=== PATIENT | female | born 1980 | race Caucasian/White ===

== ENCOUNTER → 2017-07-06 10:41 | Outpatient (REF) | payer BC, SELFPAY ==
[2017-07-06 14:30] LABS: Basophils # 0.1 K/mm3 (0-0.2); Basophils % 0.8 % (0.1-2.0); Eosinophils # 0.5 K/mm3 (0.0-0.4); Eosinophils % 4.3 % (0.1-12.0); Hematocrit 42.4 % (37.0-47.0); Hemoglobin 14.2 g/dL (12.2-16.2); Lymphocytes # 3.8 K/mm3 (0.7-4.5); Lymphocytes % 33.8 K/mm3 (10-50); Mean Corpuscular HGB Conc 33.5 g/dL (31.8-35.4); Mean Corpuscular Hemoglobin 29.3 pg (27.0-31.2); Mean Corpuscular Volume 87.6 fl (81-99); Monocytes # 0.7 K/mm3 (0.1-1.0); Monocytes % 5.9 % (1.7-9.3); Neutrophils # 6.2 K/mm3 (1.8-7.8); Neutrophils % 55.2 % (37.0-80.0); Platelet Count 250 K/mm3 (142-424); Red Blood Count 4.84 M/mm3 (4.20-5.40); Red Cell Distribution Width 12.2 % (11.5-17.5); White Blood Count 11.2 K/mm3 (4.8-10.8)
[2017-07-06 15:00] LABS: Hemoglobin A1C 6.7 % (0.0-7.0)
[2017-07-06 16:01] LABS: Alanine Aminotransferase 31 U/L (12-78); Albumin Level 4.1 gm/dL (3.4-5.0); Albumin/Globulin Ratio 1.1 (1.1-1.8); Alkaline Phosphatase 80 U/L (46-116); Anion Gap 16.5 mEq/L (5-15); Bilirubin,Total 0.5 mg/dL (0.2-1.0); Blood Urea Nitrogen 18 mg/dL (7-18); Calcium 9.4 mg/dL (8.5-10.1); Carbon Dioxide 23 mmol/L (21.0-32.0); Chloride 103 mmol/L (98-107); Chol/HDL Ratio 5.3 (1-3.5); Cholesterol 187 mg/dL (140-200); Creatinine,Serum 0.65 mg/dL (0.55-1.02); Estimated Glomerular Filt Rate 104 ml/min (>60); Free T4 (Free Thyroxine) 0.89 ng/dl (0.76-1.46); GFR (African American) 126 ML/MIN (>60); Globulin 3.8 gm/dl (1.3-3.2); Glucose 139 mg/dL (74-106); HDL Cholesterol 35 mg/dL (29-89); LDL Cholesterol 115 mg/dL (0-130); Sodium 138 mmol/L (136-145); Thyroid Stimulating Hormone 4.59 uIU/ml (0.358-3.740); Total Protein,Serum 7.9 gm/dL (6.4-8.2); Triglycerides 184 mg/dL (30-200); VLDL Cholesterol 37 mg/dL (0-40)
[2017-07-06 16:06] LABS: Aspartate Amino Transferase 25 U/L (15-37); C-Reactive Protein < 0.2 mg/L (0.0-0.9); Potassium 4.5 mmoL/L (3.5-5.1)
[2017-07-06 16:07] LABS: Erythrocyte Sedimentation Rate 14 mm/hr (0-20)
[2017-07-07 06:19] LABS: Vitamin D 25 Hydroxy 32.5 ng/mL (30.0-100.0)
[2017-07-07 10:18] LABS: Anti-Jo-1 <0.2 AI (0.0-0.9); Anti-Smith Antibody <0.2 AI (0.0-0.9); Antichromatin Antibodies <0.2 AI (0.0-0.9); Antiscleroderma-70 Antibodies <0.2 AI (0.0-0.9); RNP Antibodies <0.2 AI (0.0-0.9); Sjogren's Anti-SS-A <0.2 AI (0.0-0.9); Sjogren's Anti-SS-B <0.2 AI (0.0-0.9)
[2017-07-08 14:47] LABS: Anti-Centromere B Antibodies <0.2 AI (0.0-0.9); Anti-DNA (DS) Ab Qn 4 IU/mL (0-9); RA Latex Turbid. 10.4 IU/mL (0.0-13.9)
== END ==
LOC: LAB 10:41
PROVIDERS: Visit Provider Nurse Practitioner Family
DX: R00.2 Palpitations (principal); R06.02 Shortness of breath; R53.83 Other fatigue; Z82.49 Family history of ischemic heart disease and other diseases of the circulatory system
CPT/HCPCS: 80053; 80061; 82652; 83036; 84439; 84443; 85025; 85651; 86038; 86140; 86431

== ENCOUNTER → 2017-07-09 13:38 | Outpatient (CLI) | payer BC, SELFPAY ==
--- NOTE | 2017-07-09 07:51 | CA_ITS ---
PROCEDURE: 2-D M-mode and color Doppler study INDICATIONS FOR THE TEST: Chest pain COPD Heart Murmur Tobacco Smoking PalpitationsX Fatigue Syncope EdemaX HypertensionXDiabetes Mellitus Rheumatic Fever SOB DOEXObesity Hyperlipidemia Family History HDX Additional History PAST H/O DRUG ABUSE PATIENT INFORMATION HEIGHT: 67 WEIGHT:236 GENDER: Female B/P:145/97 2-D/M-MODE INTERPRETATION: 2-D MEASUREMENTS OBSERVED VALUES IN CMS Right Ventricular Dimension (RVDd) 2.2 Interventricular Septum (Thickness)(IVsd) 1.3 Left Ventricular Internal Dimensions(LVIDd) 4.9 Left Ventricular Posterior Wall (Thickness)(LVPWd) .9 Aortic Root 2.5 Aortic Cusp Separation 2.2 Left Atrial Dimensions (LAD) 3.3 2D 1. Left atrium is normal size, left ventricle is normal size, there is no concentric left ventricular hypertrophy, visually estimated ejection fraction 55% with no obvious regional wall motion abnormality. 2. The right atrium and right ventricle are normal size and contractility. 3. The aortic, mitral and tricuspid valves are grossly normal. 4. The pulmonic valve is poorly visualized 6. No significant pericardial effusion noted. DOPPLER INTERROGATION: Doppler interrogation of the aortic, mitral and tricuspid valvular presence of mild mitral and tricuspid regurgitation, tricuspid and jet velocity insufficient for calculation of the right ventricular systolic pressure, diastolic parameters are within normal range. CONCLUSION: 1. Normal left ventricular size, preserved left ventricular systolic function, visually estimated ejection fraction 55% no signal wall motion abnormality, diastolic parameters are within normal range. 2. Mild mitral and tricuspid regurgitation 3. No significant pericardial effusion noted.
== END ==
PROVIDERS: PCP Nurse Practitioner Family; Visit Provider Internal Medicine
DX: R00.2 Palpitations (principal); R06.02 Shortness of breath
CPT/HCPCS: 93306; 93325

== ENCOUNTER → 2017-07-22 10:39 | Outpatient (CLI) | payer BC, SELFPAY ==
[2017-07-22 12:10] LABS: Anion Gap 11.8 mEq/L (5-15); Blood Urea Nitrogen 15 mg/dL (7-18); Carbon Dioxide 29 mmol/L (21.0-32.0); Chloride 101 mmol/L (98-107); Creatinine,Serum 0.79 mg/dL (0.55-1.02); Estimated Glomerular Filt Rate 83 ml/min (>60); GFR (African American) 101 ML/MIN (>60); Glucose 213 mg/dL (74-106); Potassium 3.8 mmoL/L (3.5-5.1); Sodium 138 mmol/L (136-145)
== END ==
PROVIDERS: PCP Nurse Practitioner Family; Visit Provider Physician Assistant
DX: R00.2 Palpitations (principal); I10 Essential (primary) hypertension; Z82.49 Family history of ischemic heart disease and other diseases of the circulatory system
CPT/HCPCS: 36415; 80048

== ENCOUNTER → 2018-01-14 13:52 | Outpatient (CLI) | payer BC, SELFPAY | PROVIDERS: PCP Nurse Practitioner Family; Visit Provider Internal Medicine Cardiovascular Disease | DX: G47.33 Obstructive sleep apnea (adult) (pediatric) (principal); R06.83 Snoring; R40.0 Somnolence; R63.5 Abnormal weight gain; I10 Essential (primary) hypertension; Z82.49 Family history of ischemic heart disease and other diseases of the circulatory system | CPT/HCPCS: 95806 ==

== ENCOUNTER → 2018-08-22 20:07 | Outpatient (CLI) | payer BC, SELFPAY ==
[2018-08-22 21:09] LABS: Thyroid Stimulating Hormone 2.54 uIU/ml (0.358-3.740)
== END ==
PROVIDERS: Visit Provider Nurse Practitioner Family
DX: E03.9 Hypothyroidism, unspecified (principal)
CPT/HCPCS: 84443

== ENCOUNTER → 2019-11-16 14:51 | Outpatient (CLI) | payer BC, SELFPAY ==
[2019-11-16 17:53] LABS: Basophils # 0.1 K/mm3 (0-0.2); Basophils % 1.3 % (0.1-2.0); Eosinophils # 0.2 K/mm3 (0.0-0.4); Eosinophils % 2.7 % (0.1-12.0); Hematocrit 44.8 % (37.0-47.0); Hemoglobin 15.4 g/dL (12.2-16.2); Lymphocytes # 2.9 K/mm3 (0.7-4.5); Lymphocytes % 36.3 % (10-50); Mean Corpuscular HGB Conc 34.3 g/dL (31.8-35.4); Mean Corpuscular Hemoglobin 30.4 pg (27.0-31.2); Mean Corpuscular Volume 88.5 fl (81-99); Mean Platelet Volume 9.3 fl (7.4-10.4); Monocytes # 0.5 K/mm3 (0.1-1.0); Monocytes % 5.6 % (1.7-9.3); Neutrophils # 4.4 K/mm3 (1.8-7.8); Neutrophils % 54.1 % (37.0-80.0); Platelet Count 328 K/mm3 (142-424); Red Blood Count 5.06 M/mm3 (4.20-5.40); Red Cell Distribution Width 12.9 % (11.5-17.5); White Blood Count 8.1 K/mm3 (4.8-10.8)
[2019-11-16 17:58] LABS: Alanine Aminotransferase 78 U/L (12-78); Albumin Level 4.5 g/dl (3.5-5.0); Albumin/Globulin Ratio 1.4 (1.1-1.8); Anion Gap 15.1 mEq/L (5-15); Aspartate Amino Transferase 54 U/L (14-36); Bilirubin,Total 0.6 mg/dl (0.2-1.3); Blood Urea Nitrogen 16 mg/dl (7-17); Calcium 10.3 mg/dl (8.4-10.2); Carbon Dioxide 27 mmol/L (22.0-30.0); Chloride 94 mmol/L (98-107); Cholesterol 322 mg/dl (140-200); Estimated Glomerular Filt Rate 112 ml/min (>60); GFR (African American) 136 ML/MIN (>60); Globulin 3.3 g/dL (1.3-3.2); HDL Cholesterol 33 mg/dl (40-60); Potassium 4.1 mmoL/L (3.5-5.1); Sodium 132 mmol/L (136-145); Total Protein,Serum 7.8 g/dl (6.3-8.2)
[2019-11-16 17:59] LABS: Alkaline Phosphatase 197 U/L (38-126); Chol/HDL Ratio 9.8 (1-3.5)
[2019-11-16 18:10] LABS: Direct LDL Cholesterol 131.45 mg/dL (100-129)
[2019-11-16 18:15] LABS: T4 (Thyroxine) 9.7 ug/dl (5.53-11.0)
[2019-11-16 18:16] LABS: 25-OH Vitamin D, Total 27.2 ng/mL (30-100)
[2019-11-16 18:29] LABS: Thyroid Stimulating Hormone 2.48 uIU/mL (0.465-4.68)
[2019-11-16 18:36] LABS: Triglycerides 610 mg/dl (30-150)
[2019-11-16 18:38] LABS: Glucose 515 mg/dl (74-100)
== END ==
PROVIDERS: Visit Provider Nurse Practitioner Family
DX: E07.9 Disorder of thyroid, unspecified (principal); I10 Essential (primary) hypertension; R53.83 Other fatigue
CPT/HCPCS: 80053; 80061; 82306; 84436; 84443; 85025

== ENCOUNTER 2019-11-20 20:21 | Emergency (ER) | payer BC, SELFPAY ==
[2019-11-20 20:38] VITALS: BP 120/86; PULSE 82; RESP 20; TEMP 36.7; O2SAT 97; BMI 34.7
--- NOTE | 2019-11-20 20:59 | HMH.EDUTC ---
[facility] [place] Clinical Impression: Otitis media Qualifiers: Otitis media type: suppurative Chronicity: acute Laterality: bilateral Recurrence: non-recurrent Spontaneous tympanic membrane rupture: without spontaneous rupture Qualified Code(s): H66.003 - Acute suppurative otitis media without spontaneous rupture of ear drum, bilateral Otitis externa Qualifiers: Otitis externa type: unspecified type Chronicity: acute Laterality: left Qualified Code(s): H60.502 - Unspecified acute noninfective otitis externa, left ear Disposition: Home, Self-Care Condition on Discharge: Good Instructions: Middle Ear Infection, DI for Otitis Externa Additional Instructions: Drink plenty of fluids. Take tylenol or ibuprofen for pain or fever. Take the medications as directed. Follow up with your regular doctor. GO TO THE ER FOR ANY WORSENING SYMPTOMS Prescriptions: Amoxicillin/Potassium Clav [Augmentin 875-125 Tablet] 1 tab PO Q12H 10 Days #20 tab Transmission Status: Received by [facility] Neomycin/Polymyxin B Sulf/Hc [Ldlzuizr-Hwnmvfysd-XF Otic Susp 10mL] 3 drops EAR-LEFT TID 7 Days #1 bottle Transmission Status: Received by [facility] Referrals: Bob Perkins MD [Primary Care Provider] - Forms: Work/School Release Time of Disposition: 21:02 Medical Decision Making - Medical Records Medical records reviewed: No: I reviewed the patient's medical records. - Agustín Inquiry Pt receiving controlled substance: No Vital Signs: 11/20/19 20:38 11/20/19 21:08 Temperature 98.1 F 98.1 F Temperature Source Oral Pulse Rate 82 Pulse Rate [Right Brachial] 82 Respiratory Rate 20 20 Blood Pressure 120/86 Blood Pressure [Right Arm] 120/86 Blood Pressure Mean [Right Arm] 97 Blood Pressure Source [Right Arm] Automatic Cuff Blood Pressure Position [Right Arm] Sitting 02 Sat by Pulse Oximetry 97 Oxygen Delivery Method Room Air Orders (Tests/Meds): ED MEDICATIONS Discontinued Medications Generic Name Dose Route Start Last Admin Trade Name Freq PRN Reason Stop Dose Admin Ceftriaxone Sodium 1 gm 11/20/19 20:44 11/20/19 20:59 Rocephin 1gm Vial IM 11/20/19 20:45 1 gm ONCE ONE Administration Protocol Ibuprofen 800 mg 11/20/19 20:49 11/20/19 20:58 Motrin 400mg Tablet PO 11/20/19 20:50 800 mg ONCE ONE Administration Lidocaine HCl 0 ml 11/20/19 20:44 11/20/19 21:00 Lidocaine 1% 10ml Mdv IM 11/20/19 20:45 2.1 ml ONCE ONE Administration Methylprednisolone Sodium Succinate 125 mg 11/20/19 20:44 11/20/19 21:00 Solu-Medrol 125mg/2ml Vial IM 11/20/19 20:45 125 mg ONCE ONE Administration [facility] [place] - General Stated complaint: Left ear pain Time Seen by Provider: 11/20/19 20:40 Mode of Arrival: Ambulatory Source of Information: Patient Limitations: No Limitations Description of Symptoms (Recalled from Triage Doc. by RN): PATIENT C/O LEFT EAR PAIN X 2 DAYS. SHE STATES SHE HAD A SORE IN THE EAR CANAL THAT SHE ACCIDENTLY SCRATCHED AND NOW IT IS VERY PAINFUL AND SWOLLEN HEENT Symptoms (Recalled from RN notes): Yes Resp Symptoms (Recalled from RN notes): No Skin Symptoms (Recalled from RN notes): No MS Symptoms (Recalled from RN notes): No Functional Status (Recalled from RN notes): WNL - History of Present Illness Provider Complaint: she c/o left ear pain for the past 2 days. - Related Data Previous Rx's Medication Instructions Recorded Albuterol Sulfate [Albuterol HFA 1 - 2 puffs IH Q4-6H PRN #1 inh 05/08/19 Inhaler] bisoprolol fumarate 5 mg tablet 5 mg PO QDAY #30 tab 11/16/19 fluticasone propionate 50 1 spray INTRANASAL DAILY #1 ml 11/16/19 mcg/actuation nasal spray,suspension levothyroxine 25 mcg tablet See Rx Instructions .ROUTE 11/16/19 .COMPLEX #90 unspecified lisinopril 10 See Rx Instructions .ROUTE 11/16/19 mg-hydrochlorothiazide 12.5 mg .COMPLEX #90 tab tablet Amoxicillin/Potassium Clav 1 tab PO Q12H 10 Days
[2019-11-20 21:08] VITALS: BP 120/86; PULSE 82; RESP 20; TEMP 36.7; O2SAT 97
== END 2019-11-20 21:09 | disposition home or self-care (01) ==
PROVIDERS: Emergency Provider Nurse Practitioner Family; PCP Emergency Medicine
DX: H66.003 Acute suppurative otitis media without spontaneous rupture of ear drum, bilateral (principal); H60.502 Unspecified acute noninfective otitis externa, left ear; I10 Essential (primary) hypertension; E03.9 Hypothyroidism, unspecified
CPT/HCPCS: 96372; 99201

== ENCOUNTER → 2019-11-24 16:51 | Outpatient (CLI) | payer BC, SELFPAY ==
[2019-11-24 17:18] LABS: Hemoglobin A1C 13.6 % (4.0-6.0)
[2019-11-27 18:00] LABS: C-Peptide 2.9 ng/mL (1.1-4.4)
== END ==
PROVIDERS: Visit Provider Nurse Practitioner Family
DX: R73.9 Hyperglycemia, unspecified (principal)
CPT/HCPCS: 36415; 83036; 84681

== ENCOUNTER 2019-11-25 20:27 | Emergency (ER) | payer BC, SELFPAY ==
[2019-11-25 20:38] VITALS: BP 131/99; PULSE 97; RESP 20; O2SAT 96; BMI 34.7
--- NOTE | 2019-11-25 20:42 | HMH.EDUTC ---
[facility] [place] Disposition Condition on Discharge: Undetermined Time of Disposition: 20:50 <DaltonBourbon Ruiz - Last Filed: 11/25/19 20:50> Condition on Discharge: Good <Bob Perkins - Last Filed: 11/25/19 22:29> Clinical Impression: Hyperglycemia, Ketonuria, New onset type 2 diabetes mellitus Disposition: Home, Self-Care Instructions: DI for Hyperglycemia -- Adult Additional Instructions: Transferred to ER for further workup and management of possible DKA Prescriptions: Metformin HCl [Metformin HCl ER] 500 mg PO BID #60 tab.er.24h Transmission Status: Pending to [facility] Referrals: Bob Perkins MD [Primary Care Provider] - Medical Decision Making - Agustín Inquiry Pt receiving controlled substance: No - Lab Data Lab results reviewed: Yes: I reviewed the patient's lab results. <DaltonPabloBourbonchase Millsson - Last Filed: 11/25/19 20:50> - Lab Data Result diagrams: 11/25/19 20:47 11/25/19 20:47 <Bob Perkins - Last Filed: 11/25/19 22:29> Vital Signs: 11/25/19 20:38 11/25/19 20:58 11/25/19 21:28 Temperature 98.1 F Temperature Source Oral Pulse Rate Pulse Rate [Radial] 97 H 88 74 Respiratory Rate 20 16 16 Blood Pressure Blood Pressure [Right Arm] 131/99 H 125/86 118/76 Blood Pressure Mean [Right Arm] 109 99 90 Blood Pressure Source Blood Pressure Source [Right Arm] Automatic Cuff Automatic Cuff Automatic Cuff Blood Pressure Position Blood Pressure Position [Right Arm] Sitting Sitting Sitting 02 Sat by Pulse Oximetry 96 95 96 Oxygen Delivery Method Room Air Room Air Room Air 11/25/19 22:11 Temperature 98 F Temperature Source Oral Pulse Rate 76 Pulse Rate [Radial] Respiratory Rate 16 Blood Pressure 126/82 Blood Pressure [Right Arm] Blood Pressure Mean [Right Arm] Blood Pressure Source Automatic Cuff Blood Pressure Source [Right Arm] Blood Pressure Position Sitting Blood Pressure Position [Right Arm] 02 Sat by Pulse Oximetry Oxygen Delivery Method Room Air - Lab Data Lab Results 11/25/19 20:37: POC Glucose 555 H* 11/25/19 20:38: Urine Color Yellow, Urine Appearance Clear, Urine pH 5.0, Ur Specific [place] 1.010, Urine Protein Negative, Urine Glucose (UA) 500, Urine Ketones Trace, Urine Blood 3+, Urine Nitrate Negative, Urine Bilirubin Negative, Urine Urobilinogen 0.2, Ur Leukocyte Esterase Trace 11/25/19 20:41: [facility] Negative 11/25/19 20:47: WBC 10.4, RBC 5.11, Hgb 15.7, Hct 45.1, MCV 88.3, MCH 30.8, MCHC 34.9, RDW 12.9, Plt Count 282, MPV 8.0, Neut % (Auto) 58.8, Lymph % (Auto) 33.3, Knott % (Auto) 4.8, Eos % (Auto) 1.9, Baso % (Auto) 1.2, Neut # (Auto) 6.1, Lymph # (Auto) 3.5, Knott # (Auto) 0.5, Eos # (Auto) 0.2, Baso # (Auto) 0.1 11/25/19 20:47: Sodium 129 L, Potassium 4.7, Chloride 95 L, Carbon Dioxide 25, Anion Gap 13.7, BUN 26 H, Creatinine 0.80, Estimated Creat Clear 153, Estimated GFR 81, Est GFR ( Amer) 98, Glucose 574 H*, Calcium 9.6, Total Bilirubin 0.5, AST 55 H, ALT 76, Alkaline Phosphatase 173 H, Total Protein 7.8, Albumin 4.2, Globulin 3.6 H, Albumin/Globulin Ratio 1.2, Acetone Level None detected 11/25/19 20:50: Urine Color Yellow, Urine Appearance Clear, Urine pH 5.5, Ur Specific [place] <= 1.005, Urine Protein Negative, Urine Glucose (UA) 3+, Urine Ketones Trace, Urine Blood 3+, Urine Nitrate Negative, Urine Bilirubin Negative, Urine Urobilinogen 0.2, Ur Leukocyte Esterase Negative, Urine RBC 20-50, Urine WBC Occasional, Ur Squamous Epith Cells 5-10 Orders (Tests/Meds): ED MEDICATIONS Generic Name Dose Route Start Last Admin Trade Name Freq PRN Reason Stop Dose Admin Sodium Chloride 1,000 mls @ 999 mls/hr 11/25/19 21:00 11/25/19 20:57 Sod Chlor 0.9% 1000ml Bag IV 11/25/19 22:00 999 mls/hr .Q1H1M GLORY Administration Metformin HCl 500 mg 11/26/19 21:59 Glucophage 500mg Tablet PO 11/26/19 22:00 ONCE ONE Discontinued Medications Generic Name Dose Route Start Last Admin Trade Name Freq
[2019-11-25 20:46] LABS: POC Glucose,Bedside 555 (70-110)
[2019-11-25 20:51] LABS: Microscopic, Urine URINE MICROSCOPIC (MICROSCOPIC)
[2019-11-25 20:53] LABS: Apearance,Urine Clear (Clear); Color,Urine Yellow (Yellow)
[2019-11-25 20:53] LABS: UTC Pregnancy Test, Urine Negative (Negative)
[2019-11-25 20:54] LABS: Bilirubin,Urine Negative (Negative); Blood, Urine 3+ (Negative); Glucose,Urine (UA) 500 (Negative); Ketones,Urine TRACE (Negative); Protein,Urine Negative (Negative); UTC Leukocyte Esterase,Urine Trace (Negative); UTC Nitrate,Urine Negative (Negative); Urobilinogen,Urine 0.2 EU/dl (0.2)
--- NOTE | 2019-11-25 20:55 | PC.NURSE ---
After checking patients finger stick patient was transferred to the ER for farther evaluation. 18 gauge IV placed in left AC, labs obtained. Report given to GORDON Faye in ER.
[2019-11-25 20:58] VITALS: BP 125/86; PULSE 88; RESP 16; TEMP 36.7; O2SAT 95; BMI 34.7
[2019-11-25 21:00] LABS: Basophils # 0.1 K/mm3 (0-0.2); Basophils % 1.2 % (0.1-2.0); Eosinophils # 0.2 K/mm3 (0.0-0.4); Eosinophils % 1.9 % (0.1-12.0); Hematocrit 45.1 % (37.0-47.0); Hemoglobin 15.7 g/dL (12.2-16.2); Lymphocytes # 3.5 K/mm3 (0.7-4.5); Lymphocytes % 33.3 % (10-50); Mean Corpuscular HGB Conc 34.9 g/dL (31.8-35.4); Mean Corpuscular Hemoglobin 30.8 pg (27.0-31.2); Mean Corpuscular Volume 88.3 fl (81-99); Monocytes # 0.5 K/mm3 (0.1-1.0); Monocytes % 4.8 % (1.7-9.3); Neutrophils # 6.1 K/mm3 (1.8-7.8); Neutrophils % 58.8 % (37.0-80.0); Platelet Count 282 K/mm3 (142-424); Red Blood Count 5.11 M/mm3 (4.20-5.40); Red Cell Distribution Width 12.9 % (11.5-17.5); White Blood Count 10.4 K/mm3 (4.8-10.8)
[2019-11-25 21:08] LABS: Appearance,Urine CLEAR (Clear); Bilirubin,Urine Negative (Negative); Blood, Urine 3+ (Negative); Color,Urine YELLOW (Yellow); Glucose,Urine (UA) 3+ (Negative); Ketones,Urine TRACE (Negative); Leukocyte Esterase,Urine Negative (Negative); Nitrate,Urine Negative (Negative); PH,Urine 5.5 (5.0-8.5); Protein,Urine Negative (Negative); Specific Gravity, Urine <= 1.005 (1.005-1.030); Urobilinogen,Urine 0.2 EU/dl (0.2)
[2019-11-25 21:12] LABS: RBC,Urine 20-50 #/hpf (0-3); WBC,Urine Occasional #/hpf (0-3)
[2019-11-25 21:15] LABS: Alanine Aminotransferase 76 U/L (12-78); Albumin Level 4.2 g/dl (3.5-5.0); Albumin/Globulin Ratio 1.2 (1.1-1.8); Alkaline Phosphatase 173 U/L (38-126); Anion Gap 13.7 mEq/L (5-15); Aspartate Amino Transferase 55 U/L (14-36); Bilirubin,Total 0.5 mg/dl (0.2-1.3); Blood Urea Nitrogen 26 mg/dl (7-17); Calcium 9.6 mg/dl (8.4-10.2); Carbon Dioxide 25 mmol/L (22.0-30.0); Chloride 95 mmol/L (98-107); Creatinine Clearance Estimated 153 mL/min (50-200); Estimated Glomerular Filt Rate 81 ml/min (>60); GFR (African American) 98 ML/MIN (>60); Globulin 3.6 g/dL (1.3-3.2); Potassium 4.7 mmoL/L (3.5-5.1); Sodium 129 mmol/L (136-145); Total Protein,Serum 7.8 g/dl (6.3-8.2)
[2019-11-25 21:24] LABS: Glucose 574 mg/dl (74-100)
--- NOTE | 2019-11-25 21:24 | PC.NURSE ---
critical glucose reported to
[2019-11-25 21:28] VITALS: BP 118/76; PULSE 74; RESP 16; O2SAT 96
[2019-11-25 21:36] LABS: Acetone, Serum (Rapid) None Detected (None Detect)
--- NOTE | 2019-11-25 21:56 | PC.NURSE ---
spoke with Karl from pharmacy for insulin dose he recommended 10 units. MD requested to give 5 units at this time
[2019-11-25 22:11] VITALS: BP 126/82; PULSE 76; RESP 16; TEMP 36.6; O2SAT 96
[2019-11-25 22:57] LABS: Hemoglobin A1C > 14.0 % (4.0-6.0)
== END 2019-11-25 22:43 | disposition home or self-care (01) ==
LOC: UTC 20:30 → ER 20:50
PROVIDERS: Physician Assistant; Emergency Provider Emergency Medicine; PCP Emergency Medicine
DX: E11.65 Type 2 diabetes mellitus with hyperglycemia (principal); I10 Essential (primary) hypertension; E03.9 Hypothyroidism, unspecified; F41.9 Anxiety disorder, unspecified; R82.4 Acetonuria
CPT/HCPCS: 80053; 81001; 81003; 81025; 82009; 82962; 83036; 85025; 96365; 96372; 99284

== ENCOUNTER → 2020-05-02 17:40 | Outpatient (CLI) | payer OTHER, SELFPAY ==
[2020-05-02 18:59] LABS: Basophils # 0.1 K/mm3 (0-0.2); Basophils % 1.2 % (0.1-2.0); Eosinophils # 0.3 K/mm3 (0.0-0.4); Eosinophils % 2.7 % (0.1-12.0); Hemoglobin 13.9 g/dL (12.2-16.2); Lymphocytes % 32.7 % (10-50); Mean Corpuscular HGB Conc 32.4 g/dL (31.8-35.4); Mean Corpuscular Hemoglobin 28.8 pg (27.0-31.2); Mean Corpuscular Volume 88.9 fl (81-99); Mean Platelet Volume 8.6 fl (7.4-10.4); Monocytes # 0.4 K/mm3 (0.1-1.0); Monocytes % 4.8 % (1.7-9.3); Neutrophils # 5.4 K/mm3 (1.8-7.8); Neutrophils % 58.7 % (37.0-80.0); Platelet Count 295 K/mm3 (142-424); Red Blood Count 4.84 M/mm3 (4.20-5.40); Red Cell Distribution Width 13.1 % (11.5-17.5); White Blood Count 9.2 K/mm3 (4.8-10.8)
[2020-05-02 19:09] LABS: Alanine Aminotransferase 25 U/L (12-78); Albumin Level 4.4 g/dl (3.5-5.0); Albumin/Globulin Ratio 1.4 (1.1-1.8); Alkaline Phosphatase 70 U/L (38-126); Anion Gap 10.4 mEq/L (5-15); Aspartate Amino Transferase 29 U/L (14-36); Bilirubin,Total 0.6 mg/dl (0.2-1.3); Blood Urea Nitrogen 19 mg/dl (7-17); Calcium 9.9 mg/dl (8.4-10.2); Carbon Dioxide 27 mmol/L (22.0-30.0); Chloride 101 mmol/L (98-107); Chol/HDL Ratio 4.9 (1-3.5); Cholesterol 188 mg/dl (140-200); Estimated Glomerular Filt Rate 94 ml/min (>60); GFR (African American) 114 ML/MIN (>60); Globulin 3.2 g/dL (1.3-3.2); Glucose 276 mg/dl (74-100); HDL Cholesterol 38 mg/dl (40-60); Potassium 4.4 mmoL/L (3.5-5.1); Sodium 134 mmol/L (136-145); Total Protein,Serum 7.6 g/dl (6.3-8.2); Triglycerides 238 mg/dl (30-150); VLDL Cholesterol 48 mg/dL (0-40)
[2020-05-02 19:21] LABS: Direct LDL Cholesterol 102.74 mg/dL (100-129)
[2020-05-02 19:26] LABS: T4 (Thyroxine) 8.2 ug/dl (5.53-11.0)
[2020-05-02 19:40] LABS: Thyroid Stimulating Hormone 1.21 uIU/mL (0.465-4.68)
[2020-05-02 19:53] LABS: Hemoglobin A1C 7.6 % (4.0-6.0)
== END ==
PROVIDERS: Visit Provider Nurse Practitioner Family
DX: E07.9 Disorder of thyroid, unspecified (principal); E11.9 Type 2 diabetes mellitus without complications; Z79.84 Long term (current) use of oral hypoglycemic drugs
CPT/HCPCS: 80053; 80061; 83036; 84436; 84443; 85025

== ENCOUNTER → 2020-05-15 18:36 | Outpatient (CLI) | payer OTHER, SELFPAY ==
[2020-05-15 20:00] LABS: Microalbumin/Creatinine Ratio 11.1
[2020-05-15 20:22] LABS: Creatinine,Urine Random 143 mg/dL (Not Estab.)
== END ==
PROVIDERS: Visit Provider Nurse Practitioner Family
DX: E11.9 Type 2 diabetes mellitus without complications (principal); Z79.84 Long term (current) use of oral hypoglycemic drugs
CPT/HCPCS: 82043; 82570

== ENCOUNTER 2020-06-26 16:38 | Emergency (ER) | payer OTHER, SELFPAY ==
[2020-06-26 16:57] VITALS: BP 109/76; PULSE 92; RESP 19; TEMP 36.8; O2SAT 99; BMI 34.4
--- NOTE | 2020-06-26 17:16 | HMH.EDUTC ---
[facility] [place] Clinical Impression: Nausea, vomiting and diarrhea Disposition: Home, Self-Care Condition on Discharge: Good Instructions: Diarrhea, Nausea and Vomiting-Adult, Ondansetron, Dicyclomine Additional Instructions: Drink extra fluids with and between meals. If you have difficulty drinking, try very small amounts of water or suck on ice chips. ? Avoid fruit juices, as these do not replace minerals and can actually increase diarrhea. ? Children and adults can use sports drinks to replenish electrolytes. Younger children and infants should use products formulated for children, like oral rehydration solutions. ? Eat food in small amounts and let your stomach recover. ? Get lots of rest. You may feel tired or weak. ? No greasy or fried foods for the next 24-48 hours BRAT diet Bananas Rice Apples and Point Clear ? Make sure to drink plenty of liquids ? Return if needed ? Straight to ER if any life threatening symptoms ? Zofran as prescribed ? You was given an outpatient order for diarrhea panel, please collect specimen and bring back to outpatient lab then call back to the [facility] or follow up with family doctor for results ? Follow up with family doctor in the next 48-72 hours if no improvement or any worsening of symptoms Prescriptions: Dicyclomine HCl [Bentyl 10mg capsule] 10 mg PO TID PRN #15 cap PRN Reason: Cramping Transmission Status: Pending to [facility] Ondansetron [Zofran 4mg ODT] 4 mg PO TIDP PRN #9 tab PRN Reason: Nausea Transmission Status: Pending to [facility] Referrals: Noam Thompson APRN [Primary Care Provider] - As needed Forms: Work/School Release Time of Disposition: 17:50 Medical Decision Making - Agustín Inquiry Pt receiving controlled substance: No Agustín was queried for this patient: No Vital Signs: 06/26/20 16:57 Temperature 98.2 F Temperature Source Oral Pulse Rate [Right Brachial] 92 H Respiratory Rate 19 Blood Pressure [Right Arm] 109/76 L Blood Pressure Mean [Right Arm] 87 Blood Pressure Source [Right Arm] Automatic Cuff Blood Pressure Position [Right Arm] Sitting 02 Sat by Pulse Oximetry 99 Oxygen Delivery Method Room Air Orders (Tests/Meds): ED MEDICATIONS Discontinued Medications Generic Name Dose Route Start Last Admin Trade Name Freq PRN Reason Stop Dose Admin Dicyclomine HCl 10 mg 06/26/20 17:20 06/26/20 17:26 Dicyclomine 10mg Capsule PO 06/26/20 17:21 10 mg ONCE ONE Administration Ondansetron HCl 4 mg 06/26/20 17:20 06/26/20 17:26 Ondansetron 4mg Odt SL 06/26/20 17:21 4 mg ONCE ONE Administration Medical Decision Narrative: Patient states that medication helped with nausea and cramping [facility] [place] - General Stated complaint: V&D Time Seen by Provider: 06/26/20 17:16 Mode of Arrival: Ambulatory Source of Information: Patient Limitations: No Limitations Description of Symptoms (Recalled from Triage Doc. by RN): Pt complains of vomiting, diarrhea & dizziness since this morning. HEENT Symptoms (Recalled from RN notes): No Resp Symptoms (Recalled from RN notes): No Skin Symptoms (Recalled from RN notes): No MS Symptoms (Recalled from RN notes): No Functional Status (Recalled from RN notes): wnl - History of Present Illness Provider Complaint: Patient states that she woke up this morning with a stomach bug States that she has been having nausea, vomiting and diarrhea since this morning and a couple times she felt a little dizzy like she was having some motion sickness when she would move quickly States that she has not taken any of her daily medications because of the vomiting - Related Data Previous Rx's Medication Instructions Recorded bisoprolol fumarate 5 mg tablet 5 mg PO QDAY #30 tab 11/16/19 aspirin 81 mg chewable tablet 81 mg PO DAILY #30 tab 12/01/19 metformin 1,000 mg tablet 1,000 mg PO BID #240 tab 12/01/19 blood sugar diagnostic See Rx Instructions .ROUTE 12/05/19 .MEDSUPPLY #100 each bl
[2020-06-26 17:52] VITALS: BP 109/76; PULSE 92; RESP 19; TEMP 36.8; O2SAT 99
== END 2020-06-26 17:54 | disposition home or self-care (01) ==
PROVIDERS: Emergency Provider Nurse Practitioner; PCP Nurse Practitioner Family
DX: R11.2 Nausea with vomiting, unspecified (principal); R19.7 Diarrhea, unspecified; E11.9 Type 2 diabetes mellitus without complications; I10 Essential (primary) hypertension; F41.9 Anxiety disorder, unspecified; E03.9 Hypothyroidism, unspecified; Z87.891 Personal history of nicotine dependence; Z79.899 Other long term (current) drug therapy
CPT/HCPCS: 99202; G0463

== ENCOUNTER → 2020-06-27 11:01 | Outpatient (CLI) | payer OTHER, SELFPAY ==
[2020-06-27 11:03] LABS: Adenovirus F 40/41, stool Not Detected (NotDetected); Astrovirus Not Detected (NotDetected); Campylobacter Not Detected (NotDetected); Clostridium Difficile A/B, PCR Not Detected (NotDetected); Cryptosporidium Not Detected (NotDetected); Cyclospora Cayetanesis Not Detected (NotDetected); Entamoeba histolytica Not Detected (NotDetected); Enteroaggregative E coli Not Detected (NotDetected); Enteropathogenic E coli Not Detected (NotDetected); Enterotoxigenic E coli Not Detected (NotDetected); Giardia lamblia Not Detected (NotDetected); Plesimonas Shigalloides, PCR Not Detected (NotDetected); Rotavirus A Not Detected (NotDetected); Salmonella, PCR Not Detected (NotDetected); Sapovirus Not Detected (NotDetected); Shiga-like toxin E coli Not Detected (NotDetected); Shigella Enterovasive E coli Not Detected (NotDetected); Vibrio Cholerae Not Detected (NotDetected); Vibrio, PCR Not Detected (NotDetected); Yersinia Entercolitica, PCR Not Detected (NotDetected)
[2020-06-27 20:22] LABS: Norovirus Detected (NotDetected)
== END ==
PROVIDERS: Visit Provider Nurse Practitioner
DX: R19.7 Diarrhea, unspecified (principal); A08.11 Acute gastroenteropathy due to Norwalk agent
CPT/HCPCS: 87507

== ENCOUNTER → 2020-11-08 14:58 | Outpatient (CLI) | payer OTHER, SELFPAY ==
[2020-11-08 15:20] LABS: Basophils # 0.2 K/mm3 (0-0.2); Basophils % 1.6 % (0.1-2.0); Eosinophils # 0.4 K/mm3 (0.0-0.4); Eosinophils % 3.4 % (0.1-12.0); Hematocrit 45.8 % (37.0-47.0); Hemoglobin 15.1 g/dL (12.2-16.2); Lymphocytes # 3.4 K/mm3 (0.7-4.5); Lymphocytes % 27.3 % (10-50); Mean Corpuscular Hemoglobin 29.9 pg (27.0-31.2); Mean Corpuscular Volume 90.6 fl (81-99); Mean Platelet Volume 9.1 fl (7.4-10.4); Monocytes # 0.7 K/mm3 (0.1-1.0); Monocytes % 5.5 % (1.7-9.3); Neutrophils # 7.7 K/mm3 (1.8-7.8); Neutrophils % 62.2 % (37.0-80.0); Platelet Count 344 K/mm3 (142-424); Red Blood Count 5.05 M/mm3 (4.20-5.40); Red Cell Distribution Width 13.1 % (11.5-17.5); White Blood Count 12.3 K/mm3 (4.8-10.8)
[2020-11-08 15:41] LABS: Amphetamine/Metha Screen,Urine Negative ng/ml (<1000); Benzodiazepines Screen,Urine Negative ng/ml (<200)
[2020-11-08 15:42] LABS: Barbiturates Screen,Urine Negative ng/ml (<200); Methadone Screen,Urine Negative ng/ml (<300)
[2020-11-08 15:43] LABS: Cannabinoid Screen,Urine Negative ng/ml (<50)
[2020-11-08 15:44] LABS: Alanine Aminotransferase 29 U/L (12-78); Albumin Level 4.4 g/dl (3.5-5.0); Albumin/Globulin Ratio 1.3 (1.1-1.8); Alkaline Phosphatase 91 U/L (38-126); Anion Gap 18.1 mEq/L (5-15); Aspartate Amino Transferase 30 U/L (14-36); Bilirubin,Total 0.3 mg/dl (0.2-1.3); Blood Urea Nitrogen 18 mg/dl (7-17); Calcium 9.7 mg/dl (8.4-10.2); Carbon Dioxide 26 mmol/L (22.0-30.0); Chloride 101 mmol/L (98-107); Chol/HDL Ratio 4.1 (1-3.5); Cholesterol 189 mg/dl (140-200); Cocaine Screen,Urine Negative ng/ml (<300); Estimated Glomerular Filt Rate 112 ml/min (>60); GFR (African American) 135 ML/MIN (>60); Globulin 3.4 g/dL (1.3-3.2); Glucose 165 mg/dl (74-100); HDL Cholesterol 46 mg/dl (40-60); Opiate Screen,Urine Negative ng/ml (<300); Potassium 4.1 mmoL/L (3.5-5.1); Sodium 141 mmol/L (136-145); Total Protein,Serum 7.8 g/dl (6.3-8.2); Triglycerides 132 mg/dl (30-150); VLDL Cholesterol 26 mg/dL (0-40)
[2020-11-08 15:45] LABS: Phencyclidine Screen,Urine Negative ng/ml (<25)
[2020-11-08 15:54] LABS: Direct LDL Cholesterol 114.77 mg/dL (100-129)
[2020-11-08 16:00] LABS: T4 (Thyroxine) 8.6 ug/dl (5.53-11.0)
[2020-11-08 16:14] LABS: Thyroid Stimulating Hormone 2.73 uIU/mL (0.465-4.68)
== END ==
PROVIDERS: Visit Provider Nurse Practitioner Family
DX: G62.9 Polyneuropathy, unspecified (principal); E11.9 Type 2 diabetes mellitus without complications; E66.9 Obesity, unspecified; Z68.35 Body mass index [BMI] 35.0-35.9, adult; Z79.84 Long term (current) use of oral hypoglycemic drugs; Z79.899 Other long term (current) drug therapy
CPT/HCPCS: 80053; 80061; 80305; 83036; 84436; 84443; 85025

== ENCOUNTER → 2020-11-22 15:15 | Outpatient (CLI) | payer OTHER, SELFPAY ==
--- NOTE | 2020-11-22 15:26 | XR_ITS ---
PROCEDURE: XR SHOULDER RT MIN 2V CLINICAL INDICATION: shoulder pain COMPARISON: No exams were available for comparison FINDINGS: No fracture or dislocation. No lytic or blastic change. There is normal mineralization. The joint spaces are well-preserved. No significant degenerative/arthritic changes. No erosive changes evident. Other findings:None. IMPRESSION: No acute findings. Dictated by: Leeroy Hernandez MD 11/22/2020 15:44 Leeroy Hernandez MD in [place] 11/22/2020 15:44
[2020-11-22 15:45] LABS: Basophils # 0.1 K/mm3 (0-0.2); Basophils % 0.8 % (0.1-2.0); Eosinophils # 0.3 K/mm3 (0.0-0.4); Eosinophils % 2.3 % (0.1-12.0); Hematocrit 44.3 % (37.0-47.0); Lymphocytes % 27.3 % (10-50); Mean Corpuscular HGB Conc 33.9 g/dL (31.8-35.4); Mean Corpuscular Hemoglobin 29.7 pg (27.0-31.2); Mean Corpuscular Volume 87.8 fl (81-99); Monocytes # 0.6 K/mm3 (0.1-1.0); Monocytes % 5.1 % (1.7-9.3); Neutrophils # 7.2 K/mm3 (1.8-7.8); Neutrophils % 64.5 % (37.0-80.0); Platelet Count 253 K/mm3 (142-424); Red Blood Count 5.05 M/mm3 (4.20-5.40); Red Cell Distribution Width 12.6 % (11.5-17.5); White Blood Count 11.1 K/mm3 (4.8-10.8)
== END ==
PROVIDERS: Visit Provider Nurse Practitioner Family
DX: D72.829 Elevated white blood cell count, unspecified (principal); M25.511 Pain in right shoulder
CPT/HCPCS: 36415; 73030; 85025

== ENCOUNTER → 2021-02-03 08:08 | Outpatient (CLI) | payer OTHER, SELFPAY | PROVIDERS: PCP Emergency Medicine; Visit Provider Nurse Practitioner | DX: Z20.822 Contact with and (suspected) exposure to COVID-19 (principal) | CPT/HCPCS: C9803; U0003; U0005 ==

== ENCOUNTER → 2021-02-21 18:39 | Outpatient (CLI) | payer OTHER, SELFPAY ==
[2021-02-21 19:40] LABS: Benzodiazepines Screen,Urine Negative ng/ml (<200)
[2021-02-21 19:41] LABS: Amphetamine/Metha Screen,Urine Negative ng/ml (<1000); Barbiturates Screen,Urine Negative ng/ml (<200)
[2021-02-21 19:42] LABS: Cannabinoid Screen,Urine Negative ng/ml (<50)
[2021-02-21 19:43] LABS: Cocaine Screen,Urine Negative ng/ml (<300); Methadone Screen,Urine Negative ng/ml (<300)
[2021-02-21 19:44] LABS: Opiate Screen,Urine Negative ng/ml (<300)
[2021-02-21 19:45] LABS: Phencyclidine Screen,Urine Negative ng/ml (<25)
== END ==
PROVIDERS: Visit Provider Nurse Practitioner Family
DX: G62.9 Polyneuropathy, unspecified (principal); M54.9 Dorsalgia, unspecified
CPT/HCPCS: 80305

== ENCOUNTER → 2021-07-11 15:30 | Outpatient (CLI) | payer OTHER, SELFPAY ==
[2021-07-11 17:54] LABS: Amphetamine/Metha Screen,Urine Negative ng/ml (<1000); Barbiturates Screen,Urine Negative ng/ml (<200)
[2021-07-11 17:55] LABS: Benzodiazepines Screen,Urine Negative ng/ml (<200); Cannabinoid Screen,Urine Negative ng/ml (<50)
[2021-07-11 17:56] LABS: Cocaine Screen,Urine Negative ng/ml (<300)
[2021-07-11 17:57] LABS: Methadone Screen,Urine Negative ng/ml (<300); Opiate Screen,Urine Negative ng/ml (<300)
[2021-07-11 17:58] LABS: Phencyclidine Screen,Urine Negative ng/ml (<25)
== END ==
PROVIDERS: PCP Nurse Practitioner Family; Visit Provider Nurse Practitioner Family
DX: G62.9 Polyneuropathy, unspecified (principal); Z79.899 Other long term (current) drug therapy
CPT/HCPCS: 80305

== ENCOUNTER → 2021-08-12 07:04 | Outpatient (CLI) | payer OTHER, SELFPAY ==
[2021-08-11 17:19] LABS: Basophils # 0.2 K/mm3 (0-0.2); Basophils % 1.7 % (0.1-2.0); Eosinophils # 0.2 K/mm3 (0.0-0.4); Eosinophils % 1.9 % (0.1-12.0); Hemoglobin 15.1 g/dL (12.2-16.2); Lymphocytes # 2.8 K/mm3 (0.7-4.5); Mean Corpuscular HGB Conc 34.3 g/dL (31.8-35.4); Mean Corpuscular Volume 87.3 fl (81-99); Mean Platelet Volume 8.9 fl (7.4-10.4); Monocytes # 0.4 K/mm3 (0.1-1.0); Monocytes % 4.7 % (1.7-9.3); Neutrophils # 5.5 K/mm3 (1.8-7.8); Neutrophils % 60.7 % (37.0-80.0); Platelet Count 335 K/mm3 (142-424); Red Blood Count 5.04 M/mm3 (4.20-5.40); Red Cell Distribution Width 12.9 % (11.5-17.5); White Blood Count 9.1 K/mm3 (4.8-10.8)
[2021-08-11 17:23] LABS: Alanine Aminotransferase 28 U/L (12-78); Albumin Level 4.1 g/dl (3.5-5.0); Albumin/Globulin Ratio 1.3 (1.1-1.8); Alkaline Phosphatase 70 U/L (38-126); Anion Gap 12.3 mEq/L (5-15); Aspartate Amino Transferase 33 U/L (14-36); Benzodiazepines Screen,Urine Negative ng/ml (<200); Bilirubin,Total 0.2 mg/dl (0.2-1.3); Blood Urea Nitrogen 15 mg/dl (7-17); Calcium 9.3 mg/dl (8.4-10.2); Carbon Dioxide 24 mmol/L (22.0-30.0); Chloride 104 mmol/L (98-107); Cholesterol 185 mg/dl (140-200); Estimated Glomerular Filt Rate 112 ml/min (>60); GFR (African American) 135 ML/MIN (>60); Globulin 3.2 g/dL (1.3-3.2); Glucose 181 mg/dl (74-100); HDL Cholesterol 31 mg/dl (40-60); Potassium 4.3 mmoL/L (3.5-5.1); Sodium 136 mmol/L (136-145); Total Protein,Serum 7.3 g/dl (6.3-8.2); Triglycerides 191 mg/dl (30-150); VLDL Cholesterol 38 mg/dL (0-40)
[2021-08-11 17:24] LABS: Amphetamine/Metha Screen,Urine Negative ng/ml (<1000); Barbiturates Screen,Urine Negative ng/ml (<200)
[2021-08-11 17:26] LABS: Cannabinoid Screen,Urine Negative ng/ml (<50); Cocaine Screen,Urine Negative ng/ml (<300)
[2021-08-11 17:27] LABS: Methadone Screen,Urine Negative ng/ml (<300)
[2021-08-11 17:28] LABS: Opiate Screen,Urine Negative ng/ml (<300); Phencyclidine Screen,Urine Negative ng/ml (<25)
[2021-08-11 17:35] LABS: Direct LDL Cholesterol 98.97 mg/dL (100-129)
[2021-08-11 17:39] LABS: 25-OH Vitamin D, Total 37.5 ng/mL (30-100)
[2021-08-11 17:41] LABS: T4 (Thyroxine) 6.9 ug/dl (5.53-11.0)
[2021-08-11 17:54] LABS: Thyroid Stimulating Hormone 0.86 uIU/mL (0.465-4.68)
[2021-08-11 17:59] LABS: Hemoglobin A1C 7.2 % (4.0-6.0)
[2021-08-13 12:58] LABS: C-Peptide 3.9 ng/mL (1.1-4.4)
== END ==
PROVIDERS: PCP Nurse Practitioner Family; Visit Provider Nurse Practitioner Family
DX: E11.9 Type 2 diabetes mellitus without complications (principal); G62.9 Polyneuropathy, unspecified; E66.9 Obesity, unspecified; Z68.34 Body mass index [BMI] 34.0-34.9, adult; Z79.84 Long term (current) use of oral hypoglycemic drugs; Z79.899 Other long term (current) drug therapy
CPT/HCPCS: 80053; 80061; 80305; 82043; 82306; 83036; 84436; 84443; 84681; 85025

== ENCOUNTER → 2021-11-24 16:52 | Outpatient (CLI) | payer OTHER, SELFPAY ==
[2021-11-24 20:07] LABS: Basophils # 0.1 K/mm3 (0-0.2); Basophils % 1.3 % (0.1-2.0); Eosinophils # 0.3 K/mm3 (0.0-0.4); Eosinophils % 3.4 % (0.1-12.0); Hematocrit 40.2 % (37.0-47.0); Hemoglobin 13.9 g/dL (12.2-16.2); Lymphocytes # 3.9 K/mm3 (0.7-4.5); Lymphocytes % 39.8 % (10-50); Mean Corpuscular HGB Conc 34.6 g/dL (31.8-35.4); Mean Corpuscular Hemoglobin 30.1 pg (27.0-31.2); Mean Corpuscular Volume 86.9 fl (81-99); Mean Platelet Volume 9.2 fl (7.4-10.4); Monocytes # 0.7 K/mm3 (0.1-1.0); Monocytes % 6.9 % (1.7-9.3); Neutrophils # 4.8 K/mm3 (1.8-7.8); Neutrophils % 48.5 % (37.0-80.0); Platelet Count 296 K/mm3 (142-424); Red Blood Count 4.62 M/mm3 (4.20-5.40); Red Cell Distribution Width 12.7 % (11.5-17.5); White Blood Count 9.8 K/mm3 (4.8-10.8)
[2021-11-24 20:51] LABS: Anion Gap 17.1 mEq/L (5-15); Blood Urea Nitrogen 27 mg/dl (7-17); Calcium 8.8 mg/dl (8.4-10.2); Carbon Dioxide 22 mmol/L (22.0-30.0); Chloride 99 mmol/L (98-107); Estimated Glomerular Filt Rate 93 ml/min (>60); GFR (African American) 113 ML/MIN (>60); Glucose 237 mg/dl (74-100); Potassium 4.1 mmoL/L (3.5-5.1); Sodium 134 mmol/L (136-145)
[2021-11-24 21:18] LABS: Thyroid Stimulating Hormone 1.36 uIU/mL (0.465-4.68)
== END ==
PROVIDERS: PCP Nurse Practitioner Family; Visit Provider Physician Assistant
DX: R00.2 Palpitations (principal); I10 Essential (primary) hypertension
CPT/HCPCS: 80048; 84443; 85025; 93225; 93226

== ENCOUNTER → 2021-12-12 16:42 | Outpatient (CLI) | payer OTHER, SELFPAY ==
[2021-12-12 16:57] LABS: Microscopic, Urine URINE MICROSCOPIC (MICROSCOPIC)
[2021-12-12 17:38] LABS: Basophils # 0.2 K/mm3 (0-0.2); Basophils % 1.7 % (0.1-2.0); Eosinophils # 0.5 K/mm3 (0.0-0.4); Eosinophils % 4.2 % (0.1-12.0); Hematocrit 39.9 % (37.0-47.0); Hemoglobin 13.7 g/dL (12.2-16.2); Lymphocytes # 3.7 K/mm3 (0.7-4.5); Lymphocytes % 30.3 % (10-50); Mean Corpuscular HGB Conc 34.4 g/dL (31.8-35.4); Mean Corpuscular Hemoglobin 29.7 pg (27.0-31.2); Mean Corpuscular Volume 86.4 fl (81-99); Mean Platelet Volume 8.6 fl (7.4-10.4); Monocytes # 0.7 K/mm3 (0.1-1.0); Monocytes % 5.9 % (1.7-9.3); Neutrophils # 7.1 K/mm3 (1.8-7.8); Neutrophils % 57.9 % (37.0-80.0); Platelet Count 255 K/mm3 (142-424); Red Blood Count 4.62 M/mm3 (4.20-5.40); Red Cell Distribution Width 13.1 % (11.5-17.5); White Blood Count 12.2 K/mm3 (4.8-10.8)
[2021-12-12 17:45] LABS: Appearance,Urine CLEAR (Clear); Bilirubin,Urine Negative (Negative); Blood, Urine TRACE-I (Negative); Color,Urine YELLOW (Yellow); Glucose,Urine (UA) 1+ (Negative); Ketones,Urine Negative (Negative); Leukocyte Esterase,Urine Negative (Negative); Nitrate,Urine Negative (Negative); Protein,Urine Negative (Negative); Specific Gravity, Urine >= 1.030 (1.005-1.030); Urobilinogen,Urine 0.2 EU/dl (0.2)
[2021-12-12 17:57] LABS: Creatinine,Urine Random 122 mg/dL (Not Estab.)
[2021-12-12 17:58] LABS: Microalbumin/Creatinine Ratio 11.1
[2021-12-12 18:08] LABS: Albumin Level 3.9 g/dl (3.5-5.0); Anion Gap 12.6 mEq/L (5-15); Blood Urea Nitrogen 22 mg/dl (7-17); Carbon Dioxide 25 mmol/L (22.0-30.0); Chloride 100 mmol/L (98-107); Estimated Glomerular Filt Rate 93 ml/min (>60); GFR (African American) 113 ML/MIN (>60); Glucose 212 mg/dl (74-100); Phosphorous 4.8 mg/dl (2.5-4.5); Potassium 4.6 mmoL/L (3.5-5.1); Sodium 133 mmol/L (136-145)
[2021-12-12 18:16] LABS: Bacteria,Urine 1+ /lpf; RBC,Urine Occasional #/hpf (0-3)
[2021-12-12 18:26] LABS: 25-OH Vitamin D, Total 31.5 ng/mL (30-100)
== END ==
PROVIDERS: PCP Physician Assistant; Visit Provider Internal Medicine Nephrology
DX: R80.9 Proteinuria, unspecified (principal); E55.9 Vitamin D deficiency, unspecified
CPT/HCPCS: 36415; 80069; 81001; 82043; 82306; 82570; 83970; 84155; 85025

== ENCOUNTER → 2021-12-15 14:20 | Outpatient (POV) | payer OTHER, SELFPAY | PROVIDERS: Visit Provider Internal Medicine Nephrology | DX: Z00.00 Encounter for general adult medical examination without abnormal findings (principal) ==

== ENCOUNTER 2021-12-17 09:25 | Emergency (ER) | payer OTHER, SELFPAY ==
[2021-12-17 09:35] VITALS: BP 136/78; PULSE 88; RESP 20; TEMP 37.1; O2SAT 96; BMI 35.4
--- NOTE | 2021-12-17 10:18 | EXP.UTC ---
Discharge Plan Disposition Patient Disposition: Home, Self-Care Condition: Good Prescriptions Prescriptions: New amoxicillin [amoxicillin] 875 mg tablet 875 mg PO Q12H Qty: 20 0RF benzonatate [benzonatate] 100 mg capsule 100 mg PO TIDP PRN (Reason: Cough) Qty: 30 0RF methylprednisolone 4 mg Tablets,Dose Pack 4 mg PO DIRECTED Qty: 21 0RF No Action aspirin [[place] Aspirin] 81 mg tablet,chewable 81 mg PO DAILY Qty: 30 2RF (DME) FreeStyle Sasha 2 [place] Misc See Rx Instructions .Route Qty: 1 0RF Rx Instructions: As directed (DME) FreeStyle Sasha 2 Sensor Kit See Rx Instructions .Route Qty: 1 0RF Rx Instructions: As directed (DME) Blood Glucose Test Strip See Rx Instructions .ROUTE .MEDSUPPLY Qty: 100 3RF Rx Instructions: As directed (DME) blood-glucose meter Misc See Rx Instructions .ROUTE .MEDSUPPLY Qty: 1 0RF Rx Instructions: As directed (DME) lancets [Color Lancets] 21 gauge misc See Rx Instructions .ROUTE .MEDSUPPLY Qty: 100 2RF Rx Instructions: As directed gabapentin 400 mg capsule 400 mg PO TID glipizide 5 mg tablet extended release 24hr 5 mg PO DAILY Rx Instructions: TAKE 1 TABLET BY MOUTH ONCE DAILY levothyroxine 25 mcg tablet 25 mcg PO DAILY bisoprolol fumarate 5 mg tablet 5 mg PO DAILY Rx Instructions: TAKE ONE TABLET BY MOUTH EVERY DAY FOR BLOOD PRESSURE simvastatin 5 mg tablet 5 mg PO DAILY Rx Instructions: TAKE 1 TABLET BY MOUTH ONCE DAILY metformin 1,000 mg tablet 1,000 mg PO BID lisinopril-hydrochlorothiazide 10-12.5 mg tablet 1 tab PO DAILY Rx Instructions: TAKE ONE TABLET BY MOUTH EVERY DAY FOR BLOOD PRESSURE Jardiance 10 mg tablet 10 mg PO DAILY Referrals Follow up/Referrals: Vicky Hoffman PA [Primary Care Provider] - See instructions Activity Restrictions/Add. Instructions Additional Instructions/Restrictions: Drink plenty of fluids. Take tylenol or ibuprofen for pain or fever. Take the medications as directed. Follow up with your regular doctor. GO TO THE ER FOR ANY WORSENING SYMPTOMS Clinical Impressions Clinical Impression: Otitis media Stand Alone Forms Stand Alone Forms: Work/School Release Instructions Patient Instructions: Middle Ear Infection, Methylprednisolone, Amoxicillin Discharge ED Provider: Bonifacio Lee [facility] [place] HPI General Stated complaint: LT ear pain w/redness Mode of Arrival: Ambulatory Source of Information: Patient Limitations: No Limitations Time Seen by Provider: 12/17/21 09:56 Description of Symptoms (Recalled from Triage Doc. by RN): PATIENT C/O CRACKLING, PAIN AND PRESSURE TO BIALTERAL EARS X 2 WEEKS HEENT Symptoms (Recalled from RN notes): Yes Resp Symptoms (Recalled from RN notes): No Skin Symptoms (Recalled from RN notes): No MS Symptoms (Recalled from RN notes): No Functional Status (Recalled from RN notes): WNL History of Present Illness Provider Complaint: She c/o left ear pain for the past 2 weeks. She has also had sinus congestion and sinus drainage also. Related Data Home Medications Medication Instructions Recorded Confirmed bisoprolol fumarate 5 mg tablet 5 mg PO DAILY Hypertension 12/17/21 12/17/21 empagliflozin 10 mg tablet 10 mg PO DAILY Diabetes 12/17/21 12/17/21 (Jardiance) gabapentin 400 mg capsule 400 mg PO TID NEUROPATHY 12/17/21 12/17/21 glipizide 5 mg tablet, extended 5 mg PO DAILY Diabetes 12/17/21 12/17/21 release 24 hr levothyroxine 25 mcg tablet 25 mcg PO DAILY THYROID 12/17/21 12/17/21 lisinopril 10 1 tab PO DAILY Hypertension 12/17/21 12/17/21 mg-hydrochlorothiazide 12.5 mg tablet metformin 1,000 mg tablet 1,000 mg PO BID Diabetes 12/17/21 12/17/21 simvastatin 5 mg tablet 5 mg PO DAILY Cholesterol 12/17/21 12/17/21 Previous Rx's Medication Instructions Recorded aspirin 81 mg chewable tablet (St 81 mg PO
[2021-12-17 10:31] VITALS: BP 136/78; PULSE 88; RESP 20; TEMP 37.1; O2SAT 96
== END 2021-12-17 10:29 | disposition home or self-care (01) ==
PROVIDERS: Emergency Provider Nurse Practitioner Family; PCP Physician Assistant
DX: H66.90 Otitis media, unspecified, unspecified ear (principal)
CPT/HCPCS: 99212; G0463

== ENCOUNTER 2021-12-23 10:07 | Emergency (ER) | payer OTHER, SELFPAY ==
--- NOTE | 2021-12-23 10:14 | EXP.UTC ---
Discharge Plan Disposition Patient Disposition: Home, Self-Care Condition: Good Prescriptions Prescriptions: New fluticasone propionate [fluticasone propionate] 50 mcg/actuation spray,suspension 1 spr intranasal DAILY 30 Days Qty: 120 0RF No Action aspirin [[place] Aspirin] 81 mg tablet,chewable 81 mg PO DAILY Qty: 30 2RF (DME) FreeStyle Sasha 2 [place] Misc See Rx Instructions .Route Qty: 1 0RF Rx Instructions: As directed (DME) FreeStyle Sasha 2 Sensor Kit See Rx Instructions .Route Qty: 1 0RF Rx Instructions: As directed (DME) Blood Glucose Test Strip See Rx Instructions .ROUTE .MEDSUPPLY Qty: 100 3RF Rx Instructions: As directed (DME) blood-glucose meter Misc See Rx Instructions .ROUTE .MEDSUPPLY Qty: 1 0RF Rx Instructions: As directed (DME) lancets [Color Lancets] 21 gauge misc See Rx Instructions .ROUTE .MEDSUPPLY Qty: 100 2RF Rx Instructions: As directed gabapentin 400 mg capsule 400 mg PO TID glipizide 5 mg tablet extended release 24hr 5 mg PO DAILY Rx Instructions: TAKE 1 TABLET BY MOUTH ONCE DAILY levothyroxine 25 mcg tablet 25 mcg PO DAILY bisoprolol fumarate 5 mg tablet 5 mg PO DAILY Rx Instructions: TAKE ONE TABLET BY MOUTH EVERY DAY FOR BLOOD PRESSURE simvastatin 5 mg tablet 5 mg PO DAILY Rx Instructions: TAKE 1 TABLET BY MOUTH ONCE DAILY metformin 1,000 mg tablet 1,000 mg PO BID lisinopril-hydrochlorothiazide 10-12.5 mg tablet 1 tab PO DAILY Rx Instructions: TAKE ONE TABLET BY MOUTH EVERY DAY FOR BLOOD PRESSURE Jardiance 10 mg tablet 10 mg PO DAILY amoxicillin [amoxicillin] 875 mg tablet 875 mg PO Q12H Qty: 20 0RF benzonatate [benzonatate] 100 mg capsule 100 mg PO TIDP PRN (Reason: Cough) Qty: 30 0RF methylprednisolone 4 mg Tablets,Dose Pack 4 mg PO DIRECTED Qty: 21 0RF Referrals Follow up/Referrals: Vicky Hoffman PA [Primary Care Provider] - See instructions Activity Restrictions/Add. Instructions Additional Instructions/Restrictions: Drink plenty of fluids. Take tylenol or ibuprofen for pain or fever. Take the medications as directed. Follow up with your regular doctor. GO TO THE ER FOR ANY WORSENING SYMPTOMS Clinical Impressions Clinical Impression: Acute serous otitis media Instructions Patient Instructions: Middle Ear Infection, Fluticasone Nasal [place] Discharge ED Provider: Bonifacio Lee [facility] [place] General Stated complaint: Worsening ear pain w/pressure both ears Time Seen by Provider: 12/23/21 10:16 History of Present Illness Provider Complaint: She is here with continued c/o ear pain and pressure. Related Data Home Medications Medication Instructions Recorded Confirmed bisoprolol fumarate 5 mg tablet 5 mg PO DAILY Hypertension 12/17/21 12/17/21 empagliflozin 10 mg tablet 10 mg PO DAILY Diabetes 12/17/21 12/17/21 (Jardiance) gabapentin 400 mg capsule 400 mg PO TID NEUROPATHY 12/17/21 12/17/21 glipizide 5 mg tablet, extended 5 mg PO DAILY Diabetes 12/17/21 12/17/21 release 24 hr levothyroxine 25 mcg tablet 25 mcg PO DAILY THYROID 12/17/21 12/17/21 lisinopril 10 1 tab PO DAILY Hypertension 12/17/21 12/17/21 mg-hydrochlorothiazide 12.5 mg tablet metformin 1,000 mg tablet 1,000 mg PO BID Diabetes 12/17/21 12/17/21 simvastatin 5 mg tablet 5 mg PO DAILY Cholesterol 12/17/21 12/17/21 Previous Rx's Medication Instructions Recorded aspirin 81 mg chewable tablet (St 81 mg PO DAILY #30 tabs 12/01/19 Johnny Aspirin) blood sugar diagnostic (Blood #100 ea 12/05/19 Glucose Test strips) blood-glucose meter #1 ea 12/05/19 lancets 21 gauge (Color Lancets) #100 ea 12/05/19 flash glucose scanning reader #1 ea 11/08/20 (FreeStyle Sasha 2 Josephine) flash glucose sensor (FreeStyle #1 ea 11/08/20 Sasha 2 Sensor kit) amoxicillin 875 mg tablet 875 mg PO Q12H #20
[2021-12-23 10:19] VITALS: BP 137/92; PULSE 63; RESP 16; TEMP 36.6; O2SAT 99; BMI 35.2
[2021-12-23 11:06] VITALS: BP 137/92; PULSE 63; RESP 16; TEMP 36.6
== END 2021-12-23 11:08 | disposition home or self-care (01) ==
PROVIDERS: Emergency Provider Nurse Practitioner Family; PCP Physician Assistant
DX: H65.03 Acute serous otitis media, bilateral (principal); R06.02 Shortness of breath; R00.2 Palpitations; R80.9 Proteinuria, unspecified; R05.9 Cough, unspecified; R60.9 Edema, unspecified; I10 Essential (primary) hypertension; E11.40 Type 2 diabetes mellitus with diabetic neuropathy, unspecified; E07.9 Disorder of thyroid, unspecified; F17.210 Nicotine dependence, cigarettes, uncomplicated; Z79.4 Long term (current) use of insulin; Z79.51 Long term (current) use of inhaled steroids; Z79.52 Long term (current) use of systemic steroids; Z79.82 Long term (current) use of aspirin; Z79.84 Long term (current) use of oral hypoglycemic drugs; Z79.899 Other long term (current) drug therapy; Z82.49 Family history of ischemic heart disease and other diseases of the circulatory system
CPT/HCPCS: 99213; G0463

== ENCOUNTER 2022-04-11 18:03 | Emergency (ER) | payer OTHER, SELFPAY ==
[2022-04-11 18:10] VITALS: BP 131/92; PULSE 89; RESP 20; TEMP 36.9; O2SAT 97; BMI 34.5
--- NOTE | 2022-04-11 18:29 | EXP.UTC ---
Discharge Plan Disposition Patient Disposition: Home, Self-Care Condition: Good Prescriptions Prescriptions: New fluconazole [Diflucan] 100 mg tablet 100 mg PO DAILY Qty: 3 0RF No Action aspirin [[place] Johnny Aspirin] 81 mg tablet,chewable 81 mg PO DAILY Qty: 30 2RF gabapentin 400 mg capsule 400 mg PO TID Qty: 90 2RF (DME) FreeStyle Sasha 2 [place] Misc See Rx Instructions .Route Qty: 1 0RF Rx Instructions: As directed (DME) FreeStyle Sasha 2 Sensor Kit See Rx Instructions .Route Qty: 1 0RF Rx Instructions: As directed (DME) Blood Glucose Test Strip See Rx Instructions .ROUTE .MEDSUPPLY Qty: 100 3RF Rx Instructions: As directed (DME) blood-glucose meter Misc See Rx Instructions .ROUTE .MEDSUPPLY Qty: 1 0RF Rx Instructions: As directed (DME) lancets [Color Lancets] 21 gauge misc See Rx Instructions .ROUTE .MEDSUPPLY Qty: 100 2RF Rx Instructions: As directed lisinopril-hydrochlorothiazide 10-12.5 mg tablet See Rx Instructions .ROUTE .COMPLEX Qty: 90 2RF Dose Instruction: TAKE ONE TABLET BY MOUTH EVERY DAY FOR BLOOD PRESSURE Rx Instructions: TAKE ONE TABLET BY MOUTH EVERY DAY FOR BLOOD PRESSURE levothyroxine 25 mcg tablet 25 mcg PO DAILY Qty: 90 3RF glipizide 5 mg tablet extended release 24hr 5 mg PO DAILY Rx Instructions: TAKE 1 TABLET BY MOUTH ONCE DAILY bisoprolol fumarate 5 mg tablet 5 mg PO DAILY Rx Instructions: TAKE ONE TABLET BY MOUTH EVERY DAY FOR BLOOD PRESSURE simvastatin 5 mg tablet 5 mg PO DAILY Rx Instructions: TAKE 1 TABLET BY MOUTH ONCE DAILY metformin 1,000 mg tablet 1,000 mg PO BID Jardiance 10 mg tablet 10 mg PO DAILY fluticasone propionate [fluticasone propionate] 50 mcg/actuation spray,suspension 1 spr intranasal DAILY 30 Days Qty: 120 0RF Referrals Follow up/Referrals: Vicky Hoffman PA [Primary Care Provider] - See instructions Activity Restrictions/Add. Instructions Additional Instructions/Restrictions: take med if after med no improvement will need to follow up with pcp/obstetrics/gynecology nurse for more work up Clinical Impressions Clinical Impression: Vaginal yeast infection Instructions Patient Instructions: DI for Vaginal Yeast Infection Discharge ED Provider: Donna ([facility])No[facility] [place] HPI General Stated complaint: hurts when urinates Mode of Arrival: Ambulatory Source of Information: Patient Limitations: No Limitations Time Seen by Provider: 04/11/22 18:30 Description of Symptoms (Recalled from Triage Doc. by RN): PATIENT C/O VAGINAL DRYNESS AND IRRITATION THAT STARTED THIS MORNING HEENT Symptoms (Recalled from RN notes): No Resp Symptoms (Recalled from RN notes): No Skin Symptoms (Recalled from RN notes): No MS Symptoms (Recalled from RN notes): No Functional Status (Recalled from RN notes): WNL History of Present Illness Provider Complaint: 41 yr female presnets for vaginal dryness, discharge, irritation and itching that started today. pt states she did take clindamycin recently. Pt states she has not had sex for over 4 yrs. Related Data Home Medications Medication Instructions Recorded Confirmed bisoprolol fumarate 5 mg tablet 5 mg PO DAILY Hypertension 12/17/21 02/02/22 empagliflozin 10 mg tablet 10 mg PO DAILY Diabetes 12/17/21 02/02/22 (Jardiance) glipizide 5 mg tablet, extended 5 mg PO DAILY Diabetes 12/17/21 02/02/22 release 24 hr metformin 1,000 mg tablet 1,000 mg PO BID Diabetes 12/17/21 02/02/22 simvastatin 5 mg tablet 5 mg PO DAILY Cholesterol 12/17/21 02/02/22 Previous Rx's Medication Instructions Recorded aspirin 81 mg chewable tablet (St 81 mg PO DAILY #30 tabs 12/01/19 Johnny Aspirin) blood sugar diagnostic (Blood #100 ea 12/05/19 Glucose Test strips) blood-glucose meter #1 ea 12/05/19 lancets 21 gauge (Color Lancets) #100 ea 12/05/19 flash glucose scanning reader #1 ea 11/08/20
[2022-04-11 18:33] VITALS: BP 131/92; PULSE 89; RESP 20; TEMP 36.9; O2SAT 97
== END 2022-04-11 18:41 | disposition home or self-care (01) ==
PROVIDERS: Emergency Provider Nurse Practitioner Family; PCP Physician Assistant
DX: B37.31 Acute candidiasis of vulva and vagina (principal)
CPT/HCPCS: 99212; 99213; G0463

== ENCOUNTER → 2022-12-02 23:11 | Outpatient (CLI) | payer OTHER, SELFPAY ==
[2022-12-02 19:22] LABS: Alanine Aminotransferase 23 U/L (12-78); Albumin Level 4.6 g/dl (3.5-5.0); Albumin/Globulin Ratio 1.4 (1.1-1.8); Alkaline Phosphatase 72 U/L (38-126); Anion Gap 16.6 mEq/L (5-15); Aspartate Amino Transferase 31 U/L (14-36); Bilirubin,Total 0.3 mg/dl (0.2-1.3); Blood Urea Nitrogen 21 mg/dl (7-17); Calcium 9.6 mg/dl (8.4-10.2); Carbon Dioxide 24 mmol/L (22.0-30.0); Chloride 103 mmol/L (98-107); Chol/HDL Ratio 4.8 (1-3.5); Cholesterol 162 mg/dl (140-200); Estimated Glomerular Filt Rate 79 ml/min (>60); GFR (African American) 96 ML/MIN (>60); Globulin 3.2 g/dL (1.3-3.2); Glucose 67 mg/dl (74-100); HDL Cholesterol 34 mg/dl (40-60); Potassium 3.6 mmoL/L (3.5-5.1); Sodium 140 mmol/L (136-145); Total Protein,Serum 7.8 g/dl (6.3-8.2); Triglycerides 124 mg/dl (30-150); VLDL Cholesterol 25 mg/dL (0-40)
[2022-12-02 19:23] LABS: Creatinine,Urine Random 200 mg/dL (Not Estab.)
[2022-12-02 19:25] LABS: Microalbumin/Creatinine Ratio 12.2
[2022-12-02 19:34] LABS: Basophils # 0.1 K/mm3 (0-0.2); Basophils % 0.8 % (0.1-2.0); Eosinophils # 0.3 K/mm3 (0.0-0.4); Eosinophils % 4.1 % (0.1-12.0); Hematocrit 44.1 % (37.0-47.0); Hemoglobin 14.3 g/dL (12.2-16.2); Lymphocytes # 2.7 K/mm3 (0.7-4.5); Lymphocytes % 35.1 % (10-50); Mean Corpuscular HGB Conc 32.4 g/dL (31.8-35.4); Mean Corpuscular Hemoglobin 29.6 pg (27.0-31.2); Mean Corpuscular Volume 91.3 fl (81-99); Mean Platelet Volume 10.7 fl (7.4-10.4); Monocytes # 0.6 K/mm3 (0.1-1.0); Monocytes % 7.9 % (1.7-9.3); Neutrophils # 4.1 K/mm3 (1.8-7.8); Platelet Count 284 K/mm3 (142-424); Red Blood Count 4.83 M/mm3 (4.20-5.40); Red Cell Distribution Width 12.7 % (11.5-17.5); White Blood Count 7.8 K/mm3 (4.8-10.8)
[2022-12-02 19:52] LABS: Thyroid Stimulating Hormone 2.09 uIU/mL (0.465-4.68)
[2022-12-02 20:11] LABS: Vitamin B12 812 pg/mL (239-931)
[2022-12-03 13:21] LABS: Hemoglobin A1C 5.3 % (4.0-6.0)
== END ==
PROVIDERS: PCP Physician Assistant; Visit Provider Physician Assistant
DX: E11.9 Type 2 diabetes mellitus without complications (principal); E66.9 Obesity, unspecified; Z68.30 Body mass index [BMI] 30.0-30.9, adult; Z79.84 Long term (current) use of oral hypoglycemic drugs; Z79.899 Other long term (current) drug therapy
CPT/HCPCS: 80053; 80061; 82043; 82306; 82570; 82607; 83036; 84443; 85025

== ENCOUNTER 2023-04-08 09:07 | Emergency (ER) | payer OTHER, SELFPAY ==
--- NOTE | 2023-04-08 09:57 | ED_ITS ---
Discharge Plan Disposition Patient Disposition: Home, Self-Care Condition: Good Prescriptions Prescriptions: New amoxicillin [amoxicillin] 875 mg tablet 875 mg PO Q12H Qty: 20 0RF methylprednisolone 4 mg Tablets,Dose Pack 4 mg PO DIRECTED 6 Days Qty: 21 0RF Rx Instructions: Take 1 pack as directed for 6 days No Action aspirin [[place] Johnny Aspirin] 81 mg tablet,chewable 81 mg PO DAILY Qty: 30 2RF (DME) FreeStyle Sasha 2 [place] Misc See Rx Instructions .Route Qty: 1 0RF Rx Instructions: As directed (DME) FreeStyle Sasha 2 Sensor Kit See Rx Instructions .Route Qty: 1 0RF Rx Instructions: As directed (DME) Comfort EZ Pen [place] 33 gauge x 5/16 needle See Rx Instructions .Route Qty: 100 0RF Rx Instructions: As directed gabapentin 400 mg capsule 400 mg PO TID Qty: 90 2RF bisoprolol fumarate 5 mg tablet See Rx Instructions .ROUTE .COMPLEX Qty: 30 1RF Dose Instruction: TAKE ONE TABLET BY MOUTH EVERY DAY FOR BLOOD PRESSURE Rx Instructions: TAKE ONE TABLET BY MOUTH EVERY DAY FOR BLOOD PRESSURE glipizide 5 mg tablet extended release 24hr See Rx Instructions .ROUTE .COMPLEX Qty: 90 1RF Dose Instruction: TAKE 1 TABLET BY MOUTH ONCE DAILY Rx Instructions: TAKE 1 TABLET BY MOUTH ONCE DAILY levothyroxine 25 mcg tablet 25 mcg PO DAILY Qty: 90 3RF lisinopril-hydrochlorothiazide 10-12.5 mg tablet See Rx Instructions .ROUTE .COMPLEX Qty: 90 2RF Dose Instruction: TAKE ONE TABLET BY MOUTH EVERY DAY FOR BLOOD PRESSURE Rx Instructions: TAKE ONE TABLET BY MOUTH EVERY DAY FOR BLOOD PRESSURE (DME) Blood Glucose Test Strip See Rx Instructions .ROUTE .MEDSUPPLY Qty: 100 3RF Rx Instructions: As directed (DME) blood-glucose meter Misc See Rx Instructions .ROUTE .MEDSUPPLY Qty: 1 0RF Rx Instructions: As directed (DME) lancets [Color Lancets] 21 gauge misc See Rx Instructions .ROUTE .MEDSUPPLY Qty: 100 2RF Rx Instructions: As directed Ozempic 1 mg/dose (4 mg/3 mL) pen injector See Rx Instructions .ROUTE .COMPLEX Qty: 3 1RF Dose Instruction: INJECT 1 MG (0.75 ML) SUBCUTANEOUSLY WEEKLY DIRECTED Rx Instructions: INJECT 1 MG (0.75 ML) SUBCUTANEOUSLY WEEKLY DIRECTED fluticasone propionate [fluticasone propionate] 50 mcg/actuation spray,suspension 1 spr intranasal DAILY 30 Days Qty: 120 0RF Referrals Follow up/Referrals: Vicky Hoffman PA [Primary Care Provider] - See instructions Activity Restrictions/Add. Instructions Additional Instructions/Restrictions: Drink plenty of fluids. Take tylenol or ibuprofen for pain or fever. Take the medications as directed. Follow up with your regular doctor. GO TO THE ER FOR ANY WORSENING SYMPTOMS Clinical Impressions Clinical Impression: Otitis media Stand Alone Forms Stand Alone Forms: Work/School Release Instructions Patient Instructions: Middle Ear Infection, Methylprednisolone, Amoxicillin Discharge ED Provider: Bonifacio Lee [facility] General Stated complaint: ear pain both ears body aches Time Seen by Provider: 04/08/23 09:57 History of Present Illness Provider Complaint: She states that for the past 2 days she has had bilateral ear pain and pressure. She has a history of getting bad ear infections. She denies any fever/chills/body aches. Related Data Previous Rx's Medication Instructions Recorded aspirin 81 mg chewable tablet (St 81 mg PO DAILY #30 tabs 12/01/19 Johnny Aspirin) blood sugar diagnostic (Blood #100 ea 12/05/19 Glucose Test strips) blood-glucose meter #1 ea 12/05/19 lancets 21 gauge (Color Lancets) #100 ea 12/05/19 flash glucose scanning reader #1 ea 11/08/20 (FreeStyle Sasha 2 [place]) flash glucose sensor (FreeStyle #1 ea 11/08/20 Sasha 2 Sensor kit) fluticasone propionate 50 1 spr intranasal DAILY 30 days 12/23/21 mcg/actuation nasal #120 ea spray,suspension pen needle, diabetic 33 gauge x #100 ea 06/17/22 5/16 (Comfort EZ Pen [place]) bisoprolol fumarate 5 mg tablet See Rx Instructions .Route 12/02/22 .COMPLEX #30 tabs gabapentin 400 mg capsule 400 mg PO TID NEUROPATHY #90 caps 12/02/22 glipizide 5 mg tablet, extended See Rx Instructions .Route 12/02/22 release 24 hr .COMPLEX #90 tabs levothyroxine 25 mcg tablet 25 mcg PO DAILY THYROID #90 tabs 12/02/22 lisinopril 10 See Rx Instructions .Route 12/02/22 mg-hydrochlorothiazide 12.5 mg .COMPLEX #90 tabs tablet semaglutide 1 mg/dose (4 mg/3 mL) See Rx Instructions .Route 03/05/23 subcutaneous pen injector (Ozempic) .COMPLEX #3 mL amoxicillin 875 mg tablet 875 mg PO Q12H #20 tabs 04/08/23 methylprednisolone 4 mg tablets in 4 mg PO DIRECTED 6 days #21 tabs 04/08/23 a dose pack Allergies Allergy/AdvReac Type Severity Reaction Status Date / Time No Known Allergies Allergy Verified 04/08/23 10:13 [facility] Disclaimer: The information contained in this section may have been updated after the patient was seen, as this information can be updated by other users. Medical History Diabetes Diabetes mellitus, type 2 Diabetic neuropathy Edema Family history of coronary artery disease HTN (hypertension) Microalbuminuria Neuropathy Palpitations SOB (shortness of breath) Thyroid disease Tonsil, abscess Surgical History History of section Social History Smoking Status: Current every day smoker tobacco type: cigarettes second hand exposure: No alcohol intake: never substance use type: former substance user current occupational status: other Travel in the last 8 weeks: None ROS Obtained: Yes All systems reviewed & no additional complaints except as documented Constitutional Constitutional: Denies chills, Reports fever(s) and Reports poor appetite Eyes Eyes: Denies eye discharge ENT Ears, Nose, Mouth, and Throat: Denies ear discharge, Reports otalgia, Denies hearing loss, Denies sinus pain and Reports sore throat Cardiovascular Cardiovascular: Denies chest pain and Denies dyspnea Respiratory Respiratory: Denies chest congestion, Reports cough and Denies dyspnea Gastrointestinal Gastrointestingal: Denies abdominal pain, diarrhea, nausea or vomiting Musculoskeletal Musculoskeletal: Denies arthralgias Integumentary/Breasts Skin/Breast: Denies rash Physical Exam General General appearance: alert and in no apparent distress Head Head exam: atraumatic, normocephalic and normal inspection Eye Eye exam: Present normal appearance; Absent PERRL or EOMI ENT ENT exam: Present mucous membranes moist and normal external ear exam Expanded ENT Exam TM/Canal exam: Bilateral TM: erythema, bulging and effusion Nose exam: Absent sinus tenderness Nasal speculum exam: Bilateral: normal Mouth exam: Present normal external inspection and other; Absent drooling Teeth exam: Present normal inspection Throat exam: Present tonsillar erythema and tonsillomegaly Neck Neck exam: Present normal inspection, full ROM and trachea midline; Absent tenderness, meningismus or lymphadenopathy Chest Chest inspection: Present normal inspection and symmetric chest wall rise; Absent tenderness Respiratory Respiratory exam: Present normal lung sounds bilaterally; Absent respiratory distress, wheezes or stridor Cardiovascular Cardiovascular exam: Present regular rate, normal rhythm and normal heart sounds; Absent tachycardia or irregular rhythm Abdominal Exam Abdominal exam: Present soft and normal bowel sounds; Absent distention, tenderness, guarding, rebound or rigidity Extremities Exam Extremities exam: Present normal inspection and normal capillary refill; Absent tenderness, joint swelling or calf tenderness Back Exam Back exam: Present normal inspection and full ROM; Absent tenderness, CVA tenderness (R) or CVA tenderness (L) Neurological Exam Neurological exam: Present alert, oriented X3, CN II-XII intact, normal gait and reflexes normal; Absent motor sensory deficit Psychiatric Psychiatric exam: Present normal affect and normal mood Skin Skin exam: Present warm, dry, intact and normal color Lymphatic Lymphatic Findings: no adenopathy Medical Decision Making Medical Records Medical records reviewed: No I reviewed the patient's medical records. Agustín Inquiry Pt receiving controlled substance: No
[2023-04-08 10:00] VITALS: BP 129/88; PULSE 79; RESP 18; TEMP 36.7; O2SAT 99; BMI 31.6
[2023-04-08 10:30] VITALS: BP 129/88; PULSE 79; RESP 18; TEMP 36.7; O2SAT 99
== END 2023-04-08 10:30 | disposition home or self-care (01) ==
PROVIDERS: Emergency Provider Nurse Practitioner Family; PCP Physician Assistant
DX: H66.93 Otitis media, unspecified, bilateral (principal); F17.210 Nicotine dependence, cigarettes, uncomplicated; E11.40 Type 2 diabetes mellitus with diabetic neuropathy, unspecified; I10 Essential (primary) hypertension; E03.9 Hypothyroidism, unspecified; Z79.85 Long-term (current) use of injectable non-insulin antidiabetic drugs; Z79.84 Long term (current) use of oral hypoglycemic drugs
CPT/HCPCS: 99212; 99214; G0463

== ENCOUNTER 2023-04-21 11:28 | Outpatient (CLI) | payer OTHER, SELFPAY ==
[2023-04-21 11:56] LABS: Basophils # 0.1 K/mm3 (0-0.2); Basophils % 0.5 % (0.1-2.0); Eosinophils # 0.4 K/mm3 (0.0-0.4); Eosinophils % 3.9 % (0.1-12.0); Hematocrit 42.1 % (37.0-47.0); Hemoglobin 14.7 g/dL (12.2-16.2); Lymphocytes # 4.2 K/mm3 (0.7-4.5); Lymphocytes % 40.3 % (10-50); Mean Corpuscular HGB Conc 34.9 g/dL (31.8-35.4); Mean Corpuscular Hemoglobin 31.2 pg (27.0-31.2); Mean Corpuscular Volume 89.4 fl (81-99); Monocytes # 0.6 K/mm3 (0.1-1.0); Monocytes % 6.1 % (1.7-9.3); Neutrophils # 5.2 K/mm3 (1.8-7.8); Neutrophils % 49.1 % (37.0-80.0); Platelet Count 247 K/mm3 (142-424); Red Blood Count 4.72 M/mm3 (4.20-5.40); Red Cell Distribution Width 12.9 % (11.5-17.5); White Blood Count 10.5 K/mm3 (4.8-10.8)
[2023-04-21 12:08] LABS: Alanine Aminotransferase 25 U/L (12-78); Albumin Level 4.6 g/dl (3.5-5.0); Albumin/Globulin Ratio 1.7 (1.1-1.8); Alkaline Phosphatase 75 U/L (38-126); Anion Gap 12.6 mEq/L (5-15); Aspartate Amino Transferase 32 U/L (14-36); Bilirubin,Total 0.8 mg/dl (0.2-1.3); Blood Urea Nitrogen 18 mg/dl (7-17); Calcium 9.8 mg/dl (8.4-10.2); Carbon Dioxide 28 mmol/L (22.0-30.0); Chloride 101 mmol/L (98-107); Chol/HDL Ratio 4.9 (1-3.5); Cholesterol 207 mg/dl (140-200); Estimated Glomerular Filt Rate 93 ml/min (>60); GFR (African American) 112 ML/MIN (>60); Globulin 2.7 g/dL (1.3-3.2); Glucose 92 mg/dl (74-100); HDL Cholesterol 42 mg/dl (40-60); Potassium 3.6 mmoL/L (3.5-5.1); Sodium 138 mmol/L (136-145); Total Protein,Serum 7.3 g/dl (6.3-8.2); Triglycerides 175 mg/dl (30-150); VLDL Cholesterol 35 mg/dL (0-40)
[2023-04-21 12:27] LABS: 25-OH Vitamin D, Total 32.8 ng/mL (30-100)
[2023-04-21 12:42] LABS: Thyroid Stimulating Hormone 3.01 uIU/mL (0.465-4.68)
[2023-04-21 13:02] LABS: Hemoglobin A1C 5.1 % (4.0-6.0)
== END 2023-04-21 23:59 ==
LOC: LAB.DROPOF 11:29
PROVIDERS: PCP Physician Assistant; Visit Provider Physician Assistant
DX: E03.8 Other specified hypothyroidism (principal); E66.9 Obesity, unspecified; Z68.31 Body mass index [BMI] 31.0-31.9, adult; Z79.899 Other long term (current) drug therapy
CPT/HCPCS: 80053; 80061; 82306; 83036; 84443; 85025

== ENCOUNTER 2023-05-19 13:19 | Outpatient (CLI) | payer OTHER, SELFPAY ==
--- NOTE | 2023-05-19 13:20 | MM_ITS ---
PROCEDURE INFORMATION: Exam: MG Bilateral Screening 3D Mammography Exam date and time: 05/19/2023 1:08 PM Age: 42 years old Clinical indication: Screening mammogram. TECHNIQUE: Imaging protocol: Bilateral Screening tomosynthesis and 2D mammography including computer-aided detection (CAD) when performed. COMPARISON: No relevant prior studies available. FINDINGS: MAMMOGRAPHY: Breast composition: The breast is heterogeneously dense, which may obscure small masses. Mass: None. Architectural distortion: No new or suspicious architectural distortion. Calcifications: No new or suspicious calcifications are present Asymmetric density: No new or suspicious asymmetric density is present Skin thickening: None. Axillary adenopathy: None. IMPRESSION: No mammographic evidence of malignancy. Recommend annual screening mammography unless otherwise clinically indicated. ASSESSMENT: BI-RADS category 1: Negative.
== END 2023-05-19 23:59 ==
LOC: RAD 13:20
PROVIDERS: PCP Physician Assistant; Visit Provider Physician Assistant
DX: Z12.31 Encounter for screening mammogram for malignant neoplasm of breast (principal)
CPT/HCPCS: 77063; 77067

== ENCOUNTER 2023-07-07 08:41 | Outpatient (POV) | payer OTHER, SELFPAY | END 2023-07-07 23:59 | disposition home or self-care (01) | LOC: SC 08:41 | PROVIDERS: Visit Provider Specialist/Technologist | DX: Z00.00 Encounter for general adult medical examination without abnormal findings (principal) ==

== ENCOUNTER 2023-08-23 14:48 | Outpatient (CLI) | payer OTHER, SELFPAY ==
--- NOTE | 2023-08-23 14:52 | CT_ITS ---
FINAL REPORT TECHNIQUE: Thin section axial CT with coronal reconstruction without IV contrast. This study was performed with techniques to keep radiation doses as low as reasonably achievable (ALARA). Individualized dose reduction techniques using automated exposure control or adjustment of mA and/or kV according to the patient's size were employed. CLINICAL HISTORY: ringing in ears and recurrent ear infections FINDINGS: There is minimal mucosal thickening of the ethmoid air cells. The paranasal sinuses are otherwise clear. No air-fluid levels are identified. The mastoid air cells are clear. The middle ear space is clear. There is mild nasal septal deviation to the right. The ostiomeatal complexes are intact. IMPRESSION: Mild inflammatory mucosal thickening of the ethmoid sinuses without acute sinusitis. Middle ear space is clear. Ostiomeatal complexes are in patent. Reviewed, Interpreted and Dictated by Darien Banegas MD Transcribed by Laura Hernandez Authenticated and . [facility]
== END 2023-08-23 23:59 | disposition home or self-care (01) ==
PROVIDERS: PCP Nurse Practitioner; Visit Provider Nurse Practitioner
DX: H93.12 Tinnitus, left ear (principal); Z86.69 Personal history of other diseases of the nervous system and sense organs
CPT/HCPCS: 70486

== ENCOUNTER 2024-03-24 08:05 | Day surgery (SDC) | payer OTHER, SELFPAY ==
[2024-03-24 08:33] VITALS: BP 128/83; PULSE 63; RESP 16; TEMP 36.7; O2SAT 99; BMI 30.7
[2024-03-24 08:46] LABS: POC Glucose,Bedside 96 (70-110)
--- NOTE | 2024-03-24 14:39 | P.PCN_ITS ---
[facility] Procedure Note Date: 03/24/24 Time: 09:10 Procedure Note:: Procedure: upright tilt table test Requesting physician: Vicky HANKS Indication: Near syncopal episodes and palpitations Medications: See H&P Pretest vital signs: BP 133/82, heart rate 68, O2 sat 99% Procedure summary: Patient was prepped per protocol. Baseline monitoring supine position shows a blood pressure of 133/82, heart rate of 68 and oxygen saturation of 99% with no symptoms reported. Patient was then tilted into the upright position at 85 degrees for a total of 40 minutes. No symptoms were rep orted during test and blood pressure remained stable with a systolic pressure ranging from 115-126. Heart rate during procedure remained 74 to 75 bpm. Patient reported no symptoms during procedure. EKG monitoring strips showed normal sinus rhythm throughout procedure. Oxygen saturation remained 98 to 99%. Complications: None Conclusion: Unremarkable upright tilt table test
== END 2024-03-24 10:00 | disposition home or self-care (01) ==
PROVIDERS: PCP Physician Assistant; Visit Provider Physician Assistant
DX: R55 Syncope and collapse (principal); R00.2 Palpitations; I10 Essential (primary) hypertension; E11.9 Type 2 diabetes mellitus without complications; Z79.84 Long term (current) use of oral hypoglycemic drugs
CPT/HCPCS: 82962; 93660

== ENCOUNTER 2024-06-06 09:43 | Emergency (ER) | payer OTHER, SELFPAY ==
[2024-06-06 09:52] VITALS: BP 148/91; PULSE 82; RESP 16; TEMP 36.7; O2SAT 98; BMI 29.2
[2024-06-06 09:54] LABS: Influenza A, PCR Not Detected (NotDetected); Influenza B, PCR Not Detected (NotDetected)
--- NOTE | 2024-06-06 09:55 | ED_ITS ---
Discharge Plan Disposition Patient Disposition: Home, Self-Care Prescriptions Prescriptions: No Action aspirin [St Johnny Aspirin] 81 mg tablet,chewable 81 mg PO DAILY Qty: 30 2RF (DME) Comfort EZ Pen [place] 33 gauge x 5/16 needle See Rx Instructions .Route Qty: 100 0RF Rx Instructions: As directed levothyroxine 25 mcg tablet 25 mcg PO DAILY Qty: 90 3RF glipizide 5 mg tablet extended release 24hr See Rx Instructions .ROUTE .COMPLEX Qty: 90 1RF Dose Instruction: TAKE 1 TABLET BY MOUTH ONCE DAILY Rx Instructions: TAKE 1 TABLET BY MOUTH ONCE DAILY Ozempic 2 mg/dose (8 mg/3 mL) pen injector 2 mg SQ WEEKLY Qty: 9 2RF gabapentin 400 mg capsule 400 mg PO TID Qty: 90 2RF (DME) Blood Glucose Test Strip See Rx Instructions .ROUTE .MEDSUPPLY Qty: 100 3RF Rx Instructions: As directed (DME) blood-glucose meter Misc See Rx Instructions .ROUTE .MEDSUPPLY Qty: 1 0RF Rx Instructions: As directed (DME) lancets [Color Lancets] 21 gauge misc See Rx Instructions .ROUTE .MEDSUPPLY Qty: 100 2RF Rx Instructions: As directed metformin 500 mg tablet extended release 24 hr See Rx Instructions .ROUTE .COMPLEX Qty: 180 0RF Dose Instruction: TAKE 2 TABLETS BY MOUTH ONCE DAILY Rx Instructions: TAKE 2 TABLETS BY MOUTH ONCE DAILY Referrals Follow up/Referrals: Vicky Hoffman PA [Primary Care Provider] - See instructions Activity Restrictions/Add. Instructions Additional Instructions/Restrictions: Follow-up with your family doctor as needed for this visit to the emergency department. Take Tylenol 1000 mg every 6 hours (4 times daily) and ibuprofen 400 mg every 6 hours (4 times daily) as needed with food and water to prevent GI upset and kidney damage. Clinical Impressions Clinical Impression: Acute viral syndrome Print Language Print Language: Sinhala Discharge ED Provider: Daniel Gay General Adult HPI General Chief complaint: Recheck/Abnormal Lab/Rx Stated complaint: covid+ on test Time Seen by Provider: 06/06/24 09:55 History of Present Illness HPI narrative: Please note that above description of symptoms, in this electronic medical record under categorization of recalled from ER triage doctor by RN are reflective of an initial nursing assessment, however, is not reflective of my full history and physical exam that was personally taken and clarified. Consequentially, this preceding description of symptoms, which may include the patient's categorized chief complaint in the EMR, do not reflect my personal clinical impression, and the ultimate description of history of present illness and patient stated complaints should be deferred to this section of the note. Unless stated otherwise or congruent with this section of the note, additional signs, symptoms, or incongruence should be interpreted as inaccurate with my clinical impression. Related Data Previous Rx's ?Medication ?Instructions ?Recorded aspirin 81 mg chewable tablet (St 81 mg PO DAILY #30 tabs 12/01/19 Johnny Aspirin) blood sugar diagnostic (Blood #100 ea 12/05/19 Glucose Test strips) blood-glucose meter #1 ea 12/05/19 lancets 21 gauge (Color Lancets) #100 ea 12/05/19 pen needle, diabetic 33 gauge x #100 ea 06/17/22/ (Comfort EZ Pen [place]) levothyroxine 25 mcg tablet 25 mcg PO DAILY THYROID #90 tabs 04/21/23 gabapentin 400 mg capsule 400 mg PO TID NEUROPATHY #90 caps 10/05/23 glipizide 5 mg tablet, extended See Rx Instructions .Route 10/05/23 release 24 hr .COMPLEX #90 tabs semaglutide 2 mg/dose (8 mg/3 mL) 2 mg (0.75 mL) SQ WEEKLY #9 mL 10/05/23 subcutaneous pen injector (Ozempic) metformin 500 mg tablet,extended See Rx Instructions .Route 01/11/24 release 24 hr .COMPLEX #180 tabs Allergies Allergy/AdvReac Type Severity Reaction Status Date / Time No Known Allergies Allergy Verified 10/05/23 09:35 [facility] Disclaimer: The information contained in this section may have been updated after the patient was seen, as this information can be updated by other users. Medical History (Updated 06/06/24 @ 09:56 by Daniel Gay MD) Chronic sinusitis Tinnitus History of recurrent ear infection ETD (eustachian tube dysfunction) Tonsil, abscess Thyroid disease Diabetes mellitus, type 2 Diabetic neuropathy Microalbuminuria Neuropathy Diabetes Edema Family history of coronary artery disease SOB (shortness of breath) Palpitations HTN (hypertension) Surgical History History of section Social History (Reviewed 07/27/23 @ 10:13 by ANH Alvarado Smoking Status: Current every day smoker tobacco type: cigarettes second hand exposure: No alcohol intake: never substance use type: former substance user current occupational status: other Travel in the last 8 weeks: None Have you lived/traveled outside [place] in past 30 days?: No Contact w/someone who lives/traveled outside US past 30 days?: No Exposure to someone with infectious disease in past 14 days?: Yes Do you have a fever (greater than 100.4 F or 38 C)?: No Have you tested positive for COVID-19: Yes Exposed to someone with COVID-19 in past 14 days?: Yes Do you have a sore throat?: No Do you have a cough?: No Do you have any weakness?: No Do you have any diarrhea?: No Are you experiencing any unusual bleeding?: No Do you have any muscle aches/pain?: No Do you have any abdominal pain?: No Are you experiencing loss of taste or smell?: No Other Medical History Have you received the Flu Vaccine for this season: Yes Have you received the Pneumonia Vaccine: No ROS Obtained: Yes All systems reviewed & no additional complaints except as documented Physical Exam General General appearance: alert Head Head exam: atraumatic and normocephalic Eye Eye exam: Present normal appearance, PERRL and EOMI Neck Neck exam: Present normal inspection, full ROM and trachea midline Respiratory Respiratory exam: Absent respiratory distress, wheezes, stridor, accessory muscle use or prolonged expiratory phase Cardiovascular Cardiovascular exam: Present other (Pulses equal symmetric in upper and lower extremities) Abdominal Exam Abdominal exam: Present soft; Absent distention, tenderness or pulsatile mass Extremities Exam Extremities exam: Absent edema Neurological Exam Neurological exam: Present alert, oriented X3 and CN II-XII intact; Absent motor sensory deficit Skin Skin exam: Present warm and dry; Absent diaphoresis or erythema Medical Decision Making Medical Records Medical records reviewed: Yes I reviewed the patient's medical records. Screening: Per USPSTF and CDC recommendations, given the prevalence of disease in our region, it is our hospital?s policy to screen for HIV and viral Hepatitis for all patients aged 18 and over and those with ongoing risk factors. Agustín Inquiry Pt receiving controlled substance: No Agustín was queried for this patient: No Vital Signs: 06/06/24 09:52 06/06/24 10:10 06/06/24 10:10 Temperature 98.1 F 98.1 F 98.1 F Temperature Source Oral Oral Oral Pulse Rate 82 Pulse Rate [Radial] 82 82 Respiratory Rate 16 16 16 Blood Pressure 148/91 H Blood Pressure [Right Arm] 148/91 H 148/91 H Blood Pressure Mean [Right Arm] 110 110 Blood Pressure Source Automatic Cuff Blood Pressure Source [Right Arm] Automatic Cuff Automatic Cuff Blood Pressure Position Sitting Blood Pressure Position [Right Arm] Sitting Sitting 02 Sat by Pulse Oximetry 98 98 Oxygen Delivery Method Room Air Room Air Room Air Lab Data Lab Results 06/06/24 09:48: SARS-CoV-2 (PCR) Detected A, Influenza A Untype (PCR) Not detected, Influenza Type B (PCR) Not detected Orders (Tests/Meds): ORDERS Category Date Time Status Rapid PCR Covid and Flu A/B Stat Lab 06/06/24 09:48 Completed Medical Decision Narrative: 43-year-old female presenting for viral swab. States that she was exposed to COVID at work. Work wanted her to get swabbed, it seems for documentation purposes. Patient asymptomatic, feels well. Unsure why she was required to get viral swab. Has no complaints. History obtained the patient. On arrival, asymptomatic and very well-appearing. No wheezing, no cough, nontachycardic, mildly hypertensive. Speaking full sentences in no respiratory distress. Because patient clinically well with no signs or symptoms of infection, no interventions or further workup other than viral swab was deemed necessary. This was obtained. Prior to return, patient was discharged. I called patient at 11:01 AM on 06/06 and informed her of results over the phone. Print Graphic Designer disclaimer Much of this encounter note is an electronic patient resource specialist spoken language to printed text. Electronic patient resource specialist of the spoken language may permit errors. Although I have reviewed the note, some errors may still exist. Critical Care Critical Care Time Critical Care Time: No
--- NOTE | 2024-06-06 10:03 | PC.NURSE ---
DR MAXWELL AT BEDSIDE
[2024-06-06 10:10] VITALS: BP 148/91; PULSE 82; RESP 16; TEMP 36.7; O2SAT 98
[2024-06-06 10:38] LABS: Coronavirus 19, PCR Detected (NotDetected)
== END 2024-06-06 10:11 | disposition home or self-care (01) ==
PROVIDERS: Emergency Provider Emergency Medicine; PCP Physician Assistant
DX: B34.9 Viral infection, unspecified (principal)
CPT/HCPCS: 87636; 99283